=== PATIENT | male | born 1965 | race African-American/Black ===

== ENCOUNTER 2017-07-15 08:59 | Emergency (ER) | payer MEDICAID, MEDICARE ==
[2017-07-15 09:18] LABS: #Lymphocytes 1.1 thou/uL (1.20-3.40); #Monocytes 0.6 thou/uL (0.11-0.59); #Neutrophils 7.7 thou/uL (1.40-6.50); %Basophils 0.3 % (0.0-1.0); %Eosinophils 0.2 % (0.0-10.0); %Lymphocytes 11.1 % (21.0-51.0); %Monocytes 6.8 % (0.0-10.0); %Neutrophils 81.6 % (42.0-75.0); Hemoglobin 17.9 g/dL (14.0-18.0); Mean Corpuscular HGB CONC 33.6 g/dL (32.0-36.0); Mean Corpuscular Hemoglobin 30.8 pg (27.0-31.0); Mean Corpuscular Volume 91.8 fl (80.0-94.0); Mean Platelet Volume 9.2 fL (7.4-10.4); Platelet Count 198 thou/uL (130-400); Red Blood Cell (RBC) Count 5.82 mill/uL (4.70-6.10); White Blood Cell (WBC) Count 9.5 thou/uL (4.8-10.8)
[2017-07-15 09:36] LABS: Acetaminophen Less than 6.0 mcg/mL (10.0-30.0); Alcohol Less than 10 mg/dL (Less than 10); Salicylate Less than 8.0 mg/dL (15.0-30.0)
[2017-07-15 09:38] LABS: ALT (SGPT) 11 U/L (8-55); AST (SGOT) 16 U/L (5-34); Albumin 4.6 g/dL (3.5-5.0); Alkaline Phosphatase 133 U/L (40-150); Anion Gap 13 mmol/L (10-20); BUN (Urea Nitrogen) 27 mg/dL (8.9-20.6); Calc. Creatinine Clearance 0 mL/min (70-130); Carbon Dioxide 24 mmol/L (22-29); Chloride 107 mmol/L (98-107); Estimated GFR-MDRD 47; Globulin 3.7 g/dL (2.4-3.5); Glucose 139 mg/dL (70-105); Lipase 17 U/L (8-78); Magnesium 2.5 mg/dL (1.6-2.6); Protein, Total 8.3 g/dL (6.0-8.3); Sodium 140 mmol/L (136-145)
[2017-07-15] MEDS ORDERED: Pantoprazole 40 MG VIAL IVP SCH (10:30)
[2017-07-15] MEDS ORDERED: Pantoprazole 40 MG VIAL ONE (10:36)
== END 2017-07-15 12:14 | disposition left against medical advice (07) ==
LOC: ERS 08:59
DX: R11.2 Nausea with vomiting, unspecified (principal); I10 Essential (primary) hypertension; F20.9 Schizophrenia, unspecified; F17.210 Nicotine dependence, cigarettes, uncomplicated
CPT/HCPCS: 80053; 80307; 83690; 83735; 85025; 93005; 96361; 96374; C9113

== ENCOUNTER 2017-09-24 12:08 | Emergency (ER) | payer MEDICARE ==
[2017-09-24 13:04] LABS: Bilirubin Moderate (Negative); Blood, Urine Negative (Negative); Clarity CLEAR (Clear); Glucose, Urine (Dipstick) Negative (Negative); Leukocyte Small (Negative); Nitrite Negative (Negative); Protein, Urine (Dipstick) Negative (Neg-Trace); Specific Gravity, Urine 1.021 (1.002-1.036); pH, Urine 5.5 (5.0-9.0)
--- NOTE | 2017-09-24 13:07 | RAD ---
TWO VIEW CHEST SERIES: Comparison: 04-20-16 Indication: Hemoptysis. FINDINGS: There is patchy right perihilar opacity. Left lung is grossly clear. No effusion or pneumothorax iden tified. Cardiac silhouette is within normal limits of size. IMPRESSION: Patchy left perihilar opacity. This may relate to perihilar pneumonia/aspiration pneumonitis. Alterna tively, asymmetric edema is a consideration. Recommend continued imaging follow up to confirm resolut ion. POS: CHUCK
[2017-09-24 13:09] LABS: Bacteria/HPF None Seen HPF (None Seen); Pathc Cast-AUWi Flag 2.47 (0-2.49); RBC/HPF 0-3 HPF (0-3); Squamous Epithelial 0-3 HPF (0-3); WBC/HPF 0-3 HPF (0-3)
[2017-09-24 13:15] LABS: Hyaline Casts/LPF 0-3 HYALINE CAST LPF (0-3 Hyaline)
[2017-09-24 13:16] LABS: Amphetamine Not Detected (NotDetected); Barbiturates Screen Not Detected (NotDetected); Benzodiazepine Screen Not Detected (NotDetected); Cocaine Metabolite Screen Not Detected (NotDetected); Medtox Control Line Valid? VALID (VALID); Medtox Reader # READER 4; Methadone Not Detected (NotDetected); Methamphetamine Not Detected (NotDetected); Opiate Screen Not Detected (NotDetected); Oxycodone Screen Not Detected (NotDetected); Phencyclidine (PCP) Not Detected (NotDetected); THC/Cannabinoid Screen Not Detected (NotDetected); Tricyclic Screen Not Detected (NotDetected)
[2017-09-24 13:34] LABS: #Eosinphils 0.1 thou/uL (0.0-0.7); #Lymphocytes 1.3 thou/uL (1.20-3.40); #Monocytes 0.7 thou/uL (0.11-0.59); #Neutrophils 5.4 thou/uL (1.40-6.50); %Basophils 0.6 % (0.0-1.0); %Eosinophils 1.7 % (0.0-10.0); %Lymphocytes 16.8 % (21.0-51.0); %Neutrophils 71.9 % (42.0-75.0); Hemoglobin 17.6 g/dL (14.0-18.0); Mean Corpuscular HGB CONC 32.6 g/dL (32.0-36.0); Mean Corpuscular Hemoglobin 30.7 pg (27.0-31.0); Mean Corpuscular Volume 94.2 fL (78.0-98.0); Mean Platelet Volume 9.8 fL (7.4-10.4); Platelet Count 160 thou/uL (130-400); RBC Distribution Width 14.2 % (11.5-14.5); Red Blood Cell (RBC) Count 5.72 mill/uL (4.70-6.10); White Blood Cell (WBC) Count 7.5 thou/uL (4.8-10.8)
[2017-09-24 13:58] LABS: ALT (SGPT) 8 U/L (8-55); AST (SGOT) 11 U/L (5-34); Alkaline Phosphatase 97 U/L (40-150); Anion Gap 14 mmol/L (10-20); BUN (Urea Nitrogen) 25 mg/dL (8.9-20.6); Bilirubin, Total 0.8 mg/dL (0.2-1.2); Calc. Creatinine Clearance 0 mL/min (70-130); Calcium 10.1 mg/dL (7.8-10.44); Carbon Dioxide 27 mmol/L (22-29); Chloride 104 mmol/L (98-107); Estimated GFR-MDRD 59; Globulin 2.9 g/dL (2.4-3.5); Glucose 81 mg/dL (70-105); Potassium 3.9 mmol/L (3.5-5.1); Protein, Total 6.9 g/dL (6.0-8.3); Sodium 141 mmol/L (136-145)
== END 2017-09-24 14:00 | disposition left against medical advice (07) ==
LOC: ERS 12:08
DX: R11.10 Vomiting, unspecified (principal); I10 Essential (primary) hypertension; F20.9 Schizophrenia, unspecified; F17.210 Nicotine dependence, cigarettes, uncomplicated
CPT/HCPCS: 36415; 71046; 80053; 80306; 81003; 81015; 85025; 93005

== ENCOUNTER 2017-09-26 09:35 | Emergency (ER) | payer MEDICARE | END 2017-09-26 10:08 | disposition home or self-care (01) | LOC: ERS 09:35 | DX: Z00.00 Encounter for general adult medical examination without abnormal findings (principal); I10 Essential (primary) hypertension; F20.9 Schizophrenia, unspecified; F17.210 Nicotine dependence, cigarettes, uncomplicated ==

== ENCOUNTER 2017-11-24 07:13 | Emergency (ER) | payer MEDICARE ==
[2017-11-24] MEDS ORDERED: Ibuprofen 800 MG TAB ONE (07:35)
== END 2017-11-24 08:15 | disposition home or self-care (01) ==
LOC: ERS 07:13
DX: S63.501A Unspecified sprain of right wrist, initial encounter (principal); S63.502A Unspecified sprain of left wrist, initial encounter; Z71.6 Tobacco abuse counseling; I10 Essential (primary) hypertension; F20.9 Schizophrenia, unspecified; F17.210 Nicotine dependence, cigarettes, uncomplicated; X50.0XXA Overexertion from strenuous movement or load, initial encounter
CPT/HCPCS: 99406

== ENCOUNTER 2017-12-08 04:39 | Emergency (ER) | payer MEDICARE ==
[2017-12-08] MEDS ORDERED: Pantoprazole 40 MG VIAL ONE (05:03)
[2017-12-08 05:25] LABS: Prothrombin Time 13.5 SEC (12.0-14.7)
[2017-12-08 05:26] LABS: PTT 29.2 SEC (22.9-36.1)
[2017-12-08 05:31] LABS: #Basophils 0.1 thou/uL (0.0-0.2); #Eosinphils 0.1 thou/uL (0.0-0.7); #Lymphocytes 1.5 thou/uL (1.20-3.40); #Monocytes 0.6 thou/uL (0.11-0.59); #Neutrophils 6.9 thou/uL (1.40-6.50); %Basophils 0.6 % (0.0-1.0); %Eosinophils 0.8 % (0.0-10.0); %Lymphocytes 16.7 % (21.0-51.0); %Monocytes 6.9 % (0.0-10.0); Hemoglobin 17.2 g/dL (14.0-18.0); Mean Corpuscular HGB CONC 31.9 g/dL (32.0-36.0); Mean Corpuscular Hemoglobin 29.3 pg (27.0-31.0); Mean Corpuscular Volume 91.7 fL (78.0-98.0); Platelet Count 191 thou/uL (130-400); RBC Distribution Width 14.9 % (11.5-14.5); Red Blood Cell (RBC) Count 5.87 mill/uL (4.70-6.10); White Blood Cell (WBC) Count 9.2 thou/uL (4.8-10.8)
[2017-12-08 05:37] LABS: ALT (SGPT) 11 U/L (8-55); AST (SGOT) 15 U/L (5-34); Alkaline Phosphatase 131 U/L (40-150); Anion Gap 13 mmol/L (10-20); BUN (Urea Nitrogen) 11 mg/dL (8.4-25.7); Bilirubin, Total 0.9 mg/dL (0.2-1.2); Calc. Creatinine Clearance 0 mL/min (70-130); Calcium 9.8 mg/dL (7.8-10.44); Carbon Dioxide 25 mmol/L (22-29); Chloride 106 mmol/L (98-107); Estimated GFR-MDRD 67; Globulin 3.1 g/dL (2.4-3.5); Glucose 94 mg/dL (70-105); Potassium 3.6 mmol/L (3.5-5.1); Protein, Total 7.1 g/dL (6.0-8.3); Sodium 140 mmol/L (136-145)
== END 2017-12-08 06:05 | disposition home or self-care (01) ==
LOC: ERS 04:39
DX: K29.70 Gastritis, unspecified, without bleeding (principal); Z71.6 Tobacco abuse counseling; I10 Essential (primary) hypertension; F20.9 Schizophrenia, unspecified; F17.210 Nicotine dependence, cigarettes, uncomplicated
CPT/HCPCS: 36415; 80053; 82274; 85025; 85610; 85730; 86850; 86900; 86901; 96374; 99406; C9113

== ENCOUNTER 2017-12-22 07:46 | Inpatient (IN) | payer MEDICARE ==
[2017-12-22] MEDS ORDERED: Ondansetron PF 4 MG/2 ML Vial ONE (08:29)
[2017-12-22] MEDS ORDERED: Famotidine/PF 20 mg/2ml Vial ONE (08:29)
[2017-12-22] MEDS ORDERED: Pantoprazole 40 MG VIAL ONE (08:29)
[2017-12-22 08:49] LABS: #Eosinphils 0.1 thou/uL (0.0-0.7); #Lymphocytes 1.1 thou/uL (1.20-3.40); #Monocytes 0.9 thou/uL (0.11-0.59); #Neutrophils 8.9 thou/uL (1.40-6.50); %Basophils 0.2 % (0.0-1.0); %Eosinophils 1.2 % (0.0-10.0); %Lymphocytes 9.9 % (21.0-51.0); %Monocytes 7.8 % (0.0-10.0); Mean Corpuscular HGB CONC 32.1 g/dL (32.0-36.0); Mean Corpuscular Hemoglobin 29.2 pg (27.0-31.0); Mean Corpuscular Volume 91.1 fL (78.0-98.0); Mean Platelet Volume 9.9 fL (7.4-10.4); Platelet Count 177 thou/uL (130-400); RBC Distribution Width 14.8 % (11.5-14.5); Red Blood Cell (RBC) Count 6.83 mill/uL (4.70-6.10)
[2017-12-22 08:58] LABS: ALT (SGPT) 11 U/L (8-55); AST (SGOT) 15 U/L (5-34); Albumin 4.4 g/dL (3.5-5.0); Alkaline Phosphatase 101 U/L (40-150); Anion Gap 20 mmol/L (10-20); BUN (Urea Nitrogen) 57 mg/dL (8.4-25.7); Calc. Creatinine Clearance 0 mL/min (70-130); Calcium 10.2 mg/dL (7.8-10.44); Carbon Dioxide 27 mmol/L (22-29); Chloride 95 mmol/L (98-107); Estimated GFR-MDRD 43; Globulin 3.4 g/dL (2.4-3.5); Glucose 92 mg/dL (70-105); Lipase 31 U/L (8-78); Potassium 3.6 mmol/L (3.5-5.1); Protein, Total 7.8 g/dL (6.0-8.3); Sodium 138 mmol/L (136-145)
[2017-12-22 09:03] LABS: Bilirubin Negative (Negative); Blood, Urine Negative (Negative); Clarity CLEAR (Clear); Glucose, Urine (Dipstick) Negative (Negative); Leukocyte Negative (Negative); Nitrite Negative (Negative); Protein, Urine (Dipstick) Negative (Neg-Trace); Specific Gravity, Urine 1.015 (1.002-1.036); pH, Urine 5.5 (5.0-9.0)
[2017-12-22 09:20] LABS: CKMB 0.6 ng/mL (0-6.6); Troponin I Less than 0.010 ng/mL (< 0.028)
--- NOTE | 2017-12-22 09:33 | CT ---
CT ABDOMEN AND PELVIS WITH CONTRAST: Date: 12/22/17 HISTORY: Abdominal pain. COMPARISON: None. FINDINGS: Lung bases are clear. No pericardial effusion. Liver is unremarkable. Spleen is unremarkable. No dilated loops of large or small bowel. There is mil d distention of the gallbladder without pericholecystic inflammatory stranding. There is some hyperenhancement of the distal ileum, including the terminal ileum. The appendix is not well visualized, although there is no pericecal fluid to suggest acute appendicitis. Mild thickening of the urinary bladder. Moderate atherosclerotic plaque aortoiliac system without aneurysmal dilatation. No retroperitoneal a denopathy. Hypodensity intrapolar left kidney suggesting a cyst. No hydronephrosis. The skeleton is unremarkable besides a Type IIIb lumbosacral transitional vertebra. There is a high g rade stenosis of left common femoral artery due to peripheral plaque measuring 2.7 cm in length. Ther e is also 50% stenosis right common femoral artery with a length of 2.5 cm due to plaque. IMPRESSION: 1. Abnormal hyperenhancement of the mucosa of the mucosa of the terminal ileum and the distal ileum, may be sequelae of ileitis. 2. The terminal appendix measures approximately 7.0 mm without significant periappendiceal inflammat ion. 3. Mildly complex cystic structure inferior pole right kidney. Follow-up ultrasound in 6 months aniyah mmended. 4. Approximately 50% narrowing of both left and right common femoral arteries due to calcific plaque and soft plaque. POS: CHUCK
[2017-12-22] MEDS ORDERED: Meropenem 1 GM in Sodium Chloride 0.9% 100 ML IVPB SCH (10:00)
[2017-12-22] MEDS ORDERED: ISOVUE-370 76%-LOCM 1 ML ONE (10:09)
[2017-12-22] MEDS ORDERED: MEROPENEM 1 GM/50 ML 1 GM in Premix Bag 1 BAG IVPB SCH (10:15)
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
[2017-12-22] MEDS ORDERED: Acetaminophen 325 MG TAB PO PRN ×2 (14:50→14:55)
[2017-12-22] MEDS ORDERED: Ondansetron PF 4 MG/2 ML Vial IVP PRN ×2 (14:50→14:55)
[2017-12-22] MEDS ORDERED: Ondansetron ODT 4 MG TAB SL PRN (14:50)
[2017-12-22] MEDS ORDERED: Sodium Chloride 0.9% 1,000 ML IV SCH (14:50)
[2017-12-22] MEDS ORDERED: Morphine 4 MG/ML VIAL SLOW IVP PRN (14:52)
[2017-12-22] MEDS ORDERED: Loratadine 10 MG TAB PO PRN (14:55)
[2017-12-22] MEDS ORDERED: Zolpidem Tartrate 5 MG TAB PO PRN (14:55)
[2017-12-22] MEDS ORDERED: Eucerin (Mineral Oil/Petrolatum,White) 30 gm Jar TOP PRN (14:55)
[2017-12-22] MEDS ORDERED: Ondansetron ODT 4 MG TAB PO PRN (14:55)
[2017-12-22] MEDS ORDERED: Bisacodyl 10 MG SUPP PR PRN (14:55)
[2017-12-22] MEDS ORDERED: cloNIDine 0.1 MG TAB PO PRN (14:55)
[2017-12-22] MEDS ORDERED: Loperamide HCl 2 MG CAP PO PRN (14:55)
[2017-12-22] MEDS ORDERED: hydrALAZINE 20 MG/ML VIAL SLOW IVP PRN (14:55)
[2017-12-22] MEDS ORDERED: Sodium Chloride 0.65% Nasal 44 ML BOT EA NARE PRN (14:55)
[2017-12-22] MEDS ORDERED: HYDROcodone/Acetaminophen 5/325 mg Tablet PO PRN (14:55)
[2017-12-22] MEDS ORDERED: Calcium Carbonate 500 MG ChewTAB PO PRN (14:55)
[2017-12-22] MEDS ORDERED: Bisacodyl 5 MG TAB PO PRN (14:55)
[2017-12-22] MEDS ORDERED: Diabetic Tussin 200 MG/10 ML UDCUP PO PRN (14:55)
[2017-12-22] MEDS ORDERED: Artificial Tears 18 DROP/0.9 ML EA EYE PRN (14:55)
[2017-12-22] MEDS ORDERED: Amlodipine 10 MG TAB PO SCH (14:55)
[2017-12-22] MEDS: Sodium Chloride 0.9% 1,000 ML IV SCH (15:49)
[2017-12-22] MEDS: Meropenem 500 MG in Sodium Chloride 0.9% 100 ML IVPB SCH ×2 (16:55→23:49)
[2017-12-23] MEDS: Sodium Chloride 0.9% 1,000 ML IV SCH ×3 (00:11→23:59)
[2017-12-23 01:04] LABS: Creatinine, Urine 79.07 mg/dL (63-166); Protein, Urine Random Quant Less than 10 mg/dL (1-14)
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
[2017-12-23] MEDS: Meropenem 500 MG in Sodium Chloride 0.9% 100 ML IVPB SCH ×3 (08:30→23:57)
[2017-12-23] MEDS: Amlodipine 10 MG TAB PO SCH (08:30)
--- NOTE | 2017-12-23 11:15 | PDOC.PN ---
- Subjective Encounter Start Date: 12/23/17 Encounter Start Time: 10:00 -: old records requested/rev Patient seen and examined. No new complaints. No overnight events - Objective Resuscitation Status: Resuscitation Status FULL:Full Resuscitation MAR Reviewed: Yes Vital Signs & Weight: Vital Signs (12 hours) Temp Pulse Resp BP BP Pulse Ox 12/23/17 08:30 60 157/62 H 12/23/17 08:00 100 12/23/17 07:27 98.9 F 60 20 157/92 H 100 12/23/17 04:00 98.1 F 60 16 142/87 H 97 12/23/17 00:00 98.1 F 64 16 165/89 H 98 Weight Weight 145 lb 12.8 oz I&O: 12/22/17 12/23/17 12/24/17 06:59 06:59 06:59 Intake Total 3300 Output Total 200 Balance 3100 Result Diagrams: 12/22/17 08:20 12/22/17 08:20 Phys Exam - Physical Examination Constitutional: NAD HEENT: PERRLA, moist MMs, sclera anicteric Neck: no JVD, supple Respiratory: no wheezing, no rales, no rhonchi Cardiovascular: RRR, no significant murmur, no rub Gastrointestinal: soft, non-tender, no distention, positive bowel sounds Musculoskeletal: no edema, pulses present Neurological: non-focal, normal sensation, moves all 4 limbs Psychiatric: normal affect, A&O x 3 Skin: no rash, normal turgor Dx/Plan (1) Acute kidney failure Status: Acute (2) Dehydration Code(s): E86.0 - DEHYDRATION Status: Acute (3) Ileitis, terminal Code(s): K50.00 - CROHN'S DISEASE OF SMALL INTESTINE WITHOUT COMPLICATIONS Status: Acute (4) Nausea & vomiting Code(s): R11.2 - NAUSEA WITH VOMITING, UNSPECIFIED Status: Acute (5) Polycythemia, secondary Code(s): D75.1 - SECONDARY POLYCYTHEMIA Status: Acute (6) Hypertension Code(s): I10 - ESSENTIAL (PRIMARY) HYPERTENSION Status: Chronic (7) Schizophrenia Code(s): F20.9 - SCHIZOPHRENIA, UNSPECIFIED Status: Chronic (8) Tobacco abuse Code(s): Z72.0 - TOBACCO USE Status: Chronic - Plan cont current plan of care, continue antibiotics * renal US * await stool for infection work up * medication reviewed as below * symptomatic treatment * today's lab pending * advance diet * check hepatitis profile * expecting discharge soon * counselled to avoid smoking and alcohol abuse. Review of Systems - Review of Systems Eyes: negative: Pain, Vision Change, Conjunctivae Inflammation, Eyelid Inflammation, Redness, Other ENT: negative: Ear Pain, Ear Discharge, Nose Pain, Nose Discharge, Nose Congestion, Mouth Pain, Mouth Swelling, Throat Pain, Throat Swelling, Other Respiratory: negative: Cough, Dry, Shortness of Breath, Hemoptysis, SOB with Excertion, Pleuritic Pain, Sputum, Wheezing Cardiovascular: negative: chest pain, palpitations, orthopnea, paroxysmal nocturnal dyspnea, edema, light headedness, other Gastrointestinal: negative: Nausea, Vomiting, Abdominal Pain, Diarrhea, Constipation, Melena, Hematochezia, Other Genitourinary: negative: Dysuria, Frequency, Incontinence, Hematuria, Retention , Other Musculoskeletal: negative: Neck Pain, Shoulder Pain, Arm Pain, Back Pain, Hand Pain, Leg Pain, Foot Pain, Other Skin: negative: Rash, Lesions, Tarun, Bruising, Other - Medications/Allergies Allergies/Adverse Reactions: Allergies Allergy/AdvReac Type Severity Reaction Status Date / Time No Known Drug Allergies Allergy Unverified 10/11/16 11:33 Medications: Current Medications Acetaminophen (Tylenol) 650 mg PO Q4H PRN PRN Reason: Headache/Fever/Mild Pain (1-3) Hydrocodone Bitart/Acetaminophen (Logan 5/325) 1 tab PO Q4H PRN PRN Reason: Moderate Pain (4-6) Amlodipine Besylate (Norvasc) 10 mg PO DAILY [facility] Last Admin: 12/23/17 08:30 Dose: 10 mg Artificial Tears (Tears Naturale) 2 drop EA EYE PRN PRN PRN Reason: Dry Eyes Bisacodyl (Dulcolax) 10 mg PO DAILYPRN PRN PRN Reason: Constipation Bisacodyl (Dulcolax) 10 mg MD DAILYPRN PRN PRN Reason: Constipation Calcium Carbonate (Tums) 1,000 mg PO Q4H PRN PRN Reason: Heartburn or Indigestion Clonidine (Catapres) 0.1 mg PO Q4H PRN PRN Reason: SBP > ____ Last Admin: 12/22/17 15:49 Dose: 0.1 mg Cyanocobalamin (Vitamin B-12) 1,000 mcg PO DAILY [facility] Folic Acid (Folvite) 1 mg PO DAILY [facility] Guaifenesin (Robitussin Sf) 200 mg PO Q4H PRN PRN Reason: Cough Hydralazine HCl (Apresoline) 10 mg SLOW IVP Q4H PRN PRN Reason: SBP > 180 and HR < 70 Meropenem 500 mg/ Sodium (Chloride) 100 mls @ 200 mls/hr IVPB [id number],1600,[id number] [facility] Last Admin: 12/23/17 08:30 Dose: 100 mls Sodium Chloride (Normal Saline 0.9%) 1,000 mls @ 100 mls/hr IV .Q10H [facility] Last Admin: 12/23/17 00:11 Dose: 1,000 mls Loperamide HCl (Imodium) 2 mg PO PRN PRN PRN Reason: Diarrhea/Loose Stools Loratadine (Claritin) 10 mg PO DAILYPRN PRN PRN Reason: Sinus Symptoms Mineral Oil/White Petrolatum (Eucerin Cream) 0 gm TOP BIDPRN PRN PRN Reason: Dry Skin Nicotine (Nicoderm Patch) 21 mg TD DAILY [facility] Ondansetron HCl (Zofran Odt) 4 mg PO Q6H PRN PRN Reason: Nausea/Vomiting Ondansetron HCl (Zofran) 4 mg IVP Q6H PRN PRN Reason: Nausea/Vomiting Sodium Chloride ([place] Nasal [place] 0.65%) 0 ml EA NARE QIDPRN PRN PRN Reason: Nasal Congestion Thiamine HCl (Thiamine) 100 mg PO DAILY [facility] Zolpidem Tartrate (Ambien) 5 mg PO HSPRN PRN PRN Reason: Insomnia
[2017-12-23 15:21] VITALS: BMI 23.5
--- NOTE | 2017-12-23 16:02 | ULT ---
RENAL ULTRASOUND: 12/23/17 PROVIDED CLINICAL HISTORY: Renal cyst. FINDINGS: Comparison is made with the CT examination dated 12/22/17. The right kidney measures about 9.5 x 4.6 x 5.3 cm. There is no sonographic correlate evident for the cyst described on the CT examination performed yesterday. The left kidney measures about 9 x 5.4 x 4.7 cm and demonstrates no evidence for hydronephrosis. Ther e is a 1.7 cm simple appearing cyst present. The urinary bladder appears sonographically unremarkable. IMPRESSION: No sonographic abnormality is evident within the right kidney to correspond to the CT finding. When c omparing with a renal ultrasound of 09/22/10, a complex cystic structure was present in this portion o f the right kidney on that examination. Nonvisualization of this structure on the current examination may be on the basis of artifact or shadowing. This likely reflects a stable benign finding. Consider six month followup renal ultrasound. POS: CHUCK
[2017-12-23 16:24] LABS: #Basophils 0.1 thou/uL (0.0-0.2); #Eosinphils 0.1 thou/uL (0.0-0.7); #Lymphocytes 1.4 thou/uL (1.20-3.40); #Neutrophils 7.1 thou/uL (1.40-6.50); %Basophils 0.6 % (0.0-1.0); %Eosinophils 1.3 % (0.0-10.0); %Lymphocytes 14.9 % (21.0-51.0); %Monocytes 10.1 % (0.0-10.0); %Neutrophils 73.2 % (42.0-75.0); Hemoglobin 17.6 g/dL (14.0-18.0); Mean Corpuscular HGB CONC 31.7 g/dL (32.0-36.0); Mean Corpuscular Hemoglobin 29.5 pg (27.0-31.0); Mean Corpuscular Volume 93.1 fL (78.0-98.0); Mean Platelet Volume 10.8 fL (7.4-10.4); Platelet Count 122 thou/uL (130-400); RBC Distribution Width 14.5 % (11.5-14.5); Red Blood Cell (RBC) Count 5.98 mill/uL (4.70-6.10); White Blood Cell (WBC) Count 9.7 thou/uL (4.8-10.8)
[2017-12-23 16:59] LABS: HBSAg Index 0.25 S/CO (0-0.99); Hep B Surf Ag Non-Reactive S/CO (NonReactive)
[2017-12-23 17:00] LABS: Hep C IgG Ab Non-Reactive (NonReactive); Hep C Index 0.05 S/CO (0-0.79)
[2017-12-23 17:47] LABS: Hep A IgM AB Non-Reactive (NonReactive); Hep A IgM S/CO 0.11 S/CO (0-0.79)
[2017-12-23 17:49] LABS: HBCM Index 0.06 S/CO (0-0.79); Hepatitis B Core IGM Abs Non-Reactive (NonReactive)
[2017-12-23 18:26] LABS: Albumin 3.3 g/dL (3.5-5.0)
[2017-12-23 18:27] LABS: Chloride 105 mmol/L (98-107); Potassium 3.5 mmol/L (3.5-5.1); Sodium 135 mmol/L (136-145)
[2017-12-23 18:28] LABS: Globulin 2.4 g/dL (2.4-3.5); Glucose 135 mg/dL (70-105)
[2017-12-23 18:29] LABS: Anion Gap 10 mmol/L (10-20); Carbon Dioxide 24 mmol/L (22-29)
[2017-12-23 18:30] LABS: Bilirubin, Total 0.8 mg/dL (0.2-1.2)
[2017-12-23 18:31] LABS: Alkaline Phosphatase 78 U/L (40-150); Calc. Creatinine Clearance 64 mL/min (70-130); Estimated GFR-MDRD 72
[2017-12-23 18:32] LABS: BUN (Urea Nitrogen) 23 mg/dL (8.4-25.7)
[2017-12-23 18:33] LABS: AST (SGOT) 12 U/L (5-34)
[2017-12-23 18:34] LABS: ALT (SGPT) 7 U/L (8-55)
[2017-12-23 18:36] LABS: Calcium 8.6 mg/dL (7.8-10.44); Protein, Total 5.7 g/dL (6.0-8.3)
--- NOTE | 2017-12-23 21:44 | PRG ---
DATE OF SERVICE: 12/23/2017 REASON FOR CONSULTATION: Abdominal pain, nausea, vomiting, and abnormal GI imaging. SUBJECTIVE: The patient did well overnight with no acute events or problems. He has had no episodes of nausea, vomiting, or abdominal pain since being admitted to the hospital. At the time of this in [facility], he was voraciously eating his evening tray with no problems throughout the entire course of the day. Per nursing staff, he has had no problems and no return of his admitting symptoms. OBJECTIVE: VITAL SIGNS: Temperature 99, pulse 85, blood pressure 156/98, respiratory rate 18, satting 93% on ro om air. GENERAL: The patient was lying in bed in no acute distress. Alert and oriented x4. HEART: Regular rate and rhythm. LUNGS: Clear to auscultation bilaterally. ABDOMEN: Normoactive bowel sounds, soft, nontender, nondistended. EXTREMITIES: No cyanosis, clubbing or edema. LABORATORY DATA: CBC with a white blood cell count of 9.7, hemoglobin 17.6, hematocrit 55.7, platele ts 122. IMAGING DATA: No current GI imaging is available for review. ASSESSMENT AND PLAN: The patient is a 52-year-old male with past medical history of peptic ulcer dis ease, hypertension, schizophrenia, alcohol and tobacco abuse presenting with complaints of nausea, vo miting, abdominal pain, and abnormal GI imaging. Nausea, vomiting/abdominal pain. The patient states that he has been having intermittent episodes of nausea, vomiting, and abdominal pain that have been present for the last 2-3 decades. All of these episodes of nausea, vomiting, and abdominal pain have been associated with increased alcohol intake a nd when coupled with increased smoking of tobacco. Since discontinuation of both of these habits dur ing this hospitalization, he has had complete resolution of his nausea, vomiting, and abdominal pain. At this time, he may have an element of chronic pancreatitis that is further exacerbated by [facility] ed alcohol and tobacco intake, but the pattern of pain does not necessarily fit this nor does his lab oratory data echo this particular diagnosis rather a diagnosis of extensive alcohol use with alcohol being a chemical irritant to the GI tract is much more likely contributing to nausea, vomiting, and a bdominal pain. RECOMMENDATIONS: 1. Strongly urge alcohol and tobacco cessation as these are probably the root of his symptoms. 2. Advance diet as tolerated. Abnormal GI imaging. The patient is presenting with acute on chronic onset of nausea, vomiting, abdo arlen pain along with a CT scan showing some hyperenhancement of the terminal ileum. At this point, the hyperenhancement of the terminal ileum is minor and could be due to an artifactual process as opp osed to a pathological state. Given his complete resolution of symptoms upon cessation of alcohol an d tobacco abuse in addition to rehydration with IV fluids, the likelihood of terminal ileitis and/or inflammatory bowel disease is highly unlikely. Stool studies were ordered to evaluate the possibilit y of an infectious etiology for this terminal ileitis, but he has not had a bowel movement since he h as been here in the hospital making this much less likely. RECOMMENDATIONS: 1. Again, it was strongly advised cessation of tobacco and alcohol abuse. 2. Would have the patient follow up with PCP as an outpatient with repeat imaging in approximately 2 months. If he continues to have evidence of inflammation while off of alcohol and tobacco, would th en consider repeat evaluation with possible colonoscopy at that time. We will sign off at this time. Please call with any questions.
[2017-12-24] MEDS: Sodium Chloride 0.9% 1,000 ML IV SCH (06:27)
[2017-12-24 08:03] VITALS: TEMP 98.8
--- NOTE | 2017-12-24 08:11 | DIS ---
DATE OF ADMISSION: 12/22/2017 DATE OF DISCHARGE: 12/24/2017 PRIMARY CARE PHYSICIAN: Michael peters. DISCHARGE DISPOSITION: Home. PRIMARY DISCHARGE DIAGNOSES: 1. Acute kidney failure, improved. 2. Dehydration, corrected. 3. Nonspecific ileitis. 4. Nausea and vomiting, resolved. 5. Secondary polycythemia due to dehydration. SECONDARY DISCHARGE DIAGNOSES: Hypertension, medical noncompliance, tobacco abuse, alcohol abuse, schizophrenia. PRIMARY PROCEDURE/OPERATION: None. RADIOLOGICAL INVESTIGATION: 1. Abdomen and pelvis CT scan showed nonspecific terminal ileitis renal cyst. 2. Renal ultrasound did not show any complicated renal cyst. SIGNIFICANT LABORATORY DATA: WBC 9.7, hemoglobin 17.6, platelet 122. Sodium 135, potassium 3.5, BUN 23, creatinine 1.27, calcium 8.6. AST 12, ALT 7, alkaline phosphatase 78, albumin 3.3. Cardiac enzymes negative. Urinalysis normal. Hepatitis profile negative. DISCHARGE MEDICATIONS: Amlodipine 10 mg p.o. daily, folic acid 1 mg p.o. daily , vitamin B12 of 1000 mcg p.o. daily, thiamine 100 mg p.o. daily. CONTRAINDICATIONS: None. CODE STATUS: FULL CODE. INPATIENT CONSULTANTS: Dr. Robles was consulted for abnormal CT finding of terminal ileitis, but he recommended that this patient has nonspecific finding and he will need the repeat imaging with follow up with primary care physician. DISCHARGE PLAN: Post hospital, the patient will follow up with primary care physician in 1 week. HOSPITAL COURSE: A 52-year-old male with history of hypertension and he was not taking any medication. He has underlying tobacco and alcohol abuse history , who came to emergency room with nausea, vomiting, abdominal pain. He required two emergency room visit. He was significantly dehydrated with hemoconcentration on admission and acute kidney failure. He was also hypertensive. He was admitted to medical floor. We treated him with IV fluid. This time, CT of the abdomen and pelvis showed nonspecific terminal ileitis and that is why GI was consulted and they attributed to be due to artifact versus nonspecific and recommended repeat CT scan as an outpatient basis. Patient also had CT finding of the renal cyst and that is why we did a renal ultrasound, which was unremarkable. With hydration, patient's renal function improved. Patient was tolerating p.o. well, ambulatory. For his hypertension, we started amlodipine. We provided tobacco smoking cessation counseling as well as alcohol cessation counseling while in hospital. Overall, this patient is medically stable for discharge. His vitals are stable. Patient is strongly advised to follow up with the primary care physician in one week. At that time, he will need repeat imaging with a CT abdomen and if patient does have persistent finding then he will need outpatient colonoscopy. Patient is overall medically stable for discharge today. patient seen and examined bedside today, His examination is normal, Vitals stable MTDD
[2017-12-24] MEDS: Amlodipine 10 MG TAB PO SCH (08:41)
[2017-12-24 08:42] VITALS: BP 161/90
[2017-12-24] MEDS ORDERED: Nicotine 21 MG PATCH TD SCH (09:00)
[2017-12-24] MEDS ORDERED: Cyanocobalamin (Vitamin B-12) 1,000 MCG TAB PO SCH (09:00)
[2017-12-24] MEDS ORDERED: Folic Acid 1 MG TAB PO SCH (09:00)
--- NOTE | 2017-12-24 14:10 | EKG ---
Test Reason : Blood Pressure : / mmHG Vent. Rate : 089 BPM Atrial Rate : 089 BPM P-R Int : 116 ms QRS Dur : 074 ms QT Int : 358 ms P-R-T Axes : 077 -27 -70 degrees QTc Int : 435 ms Normal sinus rhythm Biatrial enlargement Left ventricular hypertrophy Abnormal ECG Sinilar to 09/24/2017 Confirmed by JOCELINE BRUNO DO ([id number]), editorial writer AMPARO MENDEZ ([id number]) on 12/24/2017 2:10:12 PM Referred By: Confirmed By:JOCELINE BRUNO DO
== END 2017-12-24 10:22 | disposition home or self-care (01) | DRG 392 ==
LOC: ERS 07:46 → T4-B 14:46
PROVIDERS: ADMIT Internal Medicine; ATTEND Internal Medicine
DX: K52.9 Noninfective gastroenteritis and colitis, unspecified (principal); N17.9 Acute kidney failure, unspecified; E86.0 Dehydration; D75.1 Secondary polycythemia; I10 Essential (primary) hypertension; F17.210 Nicotine dependence, cigarettes, uncomplicated; F20.9 Schizophrenia, unspecified; F10.10 Alcohol abuse, uncomplicated; Y90.9 Presence of alcohol in blood, level not specified; Z91.14 Patient's other noncompliance with medication regimen; Z87.11 Personal history of peptic ulcer disease; K74.60 Unspecified cirrhosis of liver; I73.9 Peripheral vascular disease, unspecified
CPT/HCPCS: 36415; 36416; 74177; 76770; 80053; 80074; 81003; 82553; 82570; 83690; 84156; 84484; 85025; 93005; 96361; 96365; 96375; C9113; J2185; J2405; J7050; S0028

== ENCOUNTER 2018-05-12 08:41 | Emergency (ER) | payer MEDICARE, MEDICAID | END 2018-05-12 10:05 | disposition home or self-care (01) | LOC: ERS 08:41 | DX: L84 Corns and callosities (principal); F20.9 Schizophrenia, unspecified; I10 Essential (primary) hypertension | CPT/HCPCS: 99283 ==

== ENCOUNTER 2018-06-03 16:02 | Emergency (ER) | payer MEDICARE, MEDICAID ==
[2018-06-03] MEDS ORDERED: Pantoprazole 40 MG VIAL ONE (17:26)
[2018-06-03 17:38] LABS: #Lymphocytes 0.9 thou/uL (1.20-3.40); #Monocytes 0.5 thou/uL (0.11-0.59); #Neutrophils 6.7 thou/uL (1.40-6.50); %Basophils 0.5 % (0.0-1.0); %Eosinophils 0.3 % (0.0-10.0); %Lymphocytes 11.3 % (21.0-51.0); %Monocytes 6.4 % (0.0-10.0); %Neutrophils 81.5 % (42.0-75.0); Hemoglobin 17.6 g/dL (14.0-18.0); Mean Corpuscular HGB CONC 33.2 g/dL (32.0-36.0); Mean Corpuscular Volume 93.2 fL (78.0-98.0); Mean Platelet Volume 9.6 fL (7.4-10.4); Platelet Count 162 thou/uL (130-400); RBC Distribution Width 14.1 % (11.5-14.5); Red Blood Cell (RBC) Count 5.69 mill/uL (4.70-6.10); White Blood Cell (WBC) Count 8.2 thou/uL (4.8-10.8)
[2018-06-03 18:00] LABS: ALT (SGPT) 11 U/L (8-55); AST (SGOT) 16 U/L (5-34); Albumin 4.3 g/dL (3.5-5.0); Alkaline Phosphatase 121 U/L (40-150); Anion Gap 18 mmol/L (10-20); BUN (Urea Nitrogen) 17 mg/dL (8.4-25.7); Bilirubin, Total 0.8 mg/dL (0.2-1.2); Calc. Creatinine Clearance 0 mL/min (70-130); Calcium 10.2 mg/dL (7.8-10.44); Carbon Dioxide 22 mmol/L (22-29); Chloride 105 mmol/L (98-107); Estimated GFR-MDRD 64; Globulin 3.4 g/dL (2.4-3.5); Glucose 106 mg/dL (70-105); Lipase 36 U/L (8-78); Potassium 4.5 mmol/L (3.5-5.1); Protein, Total 7.7 g/dL (6.0-8.3); Sodium 140 mmol/L (136-145)
== END 2018-06-03 20:10 | disposition home or self-care (01) ==
LOC: ERS 16:02
DX: K27.9 Peptic ulcer, site unspecified, unspecified as acute or chronic, without hemorrhage or perforation (principal); I10 Essential (primary) hypertension; F20.9 Schizophrenia, unspecified; F31.9 Bipolar disorder, unspecified; F17.210 Nicotine dependence, cigarettes, uncomplicated
CPT/HCPCS: 80053; 82271; 83690; 85025; 96361; 96374; C9113

== ENCOUNTER 2018-11-30 11:11 | Emergency (ER) | payer MEDICARE, MEDICAID | END 2018-11-30 13:55 | disposition home or self-care (01) | LOC: ERS 11:11 | DX: M79.672 Pain in left foot (principal); M79.671 Pain in right foot; I10 Essential (primary) hypertension; F31.9 Bipolar disorder, unspecified; F20.9 Schizophrenia, unspecified; F17.210 Nicotine dependence, cigarettes, uncomplicated | CPT/HCPCS: 99283 ==

== ENCOUNTER 2020-05-12 10:33 | Inpatient (IN) | payer MEDICAID, MEDICARE, OTHER ==
[2020-05-12] MEDS ORDERED: Midazolam HCl 5 mg/ml Vial ONE (10:37)
[2020-05-12] MEDS ORDERED: Rocuronium Bromide 10 MG/ML (10ML VIAL) ONE (10:37)
[2020-05-12] MEDS ORDERED: Propofol 1,000 MG/100 ML VIAL IV ONE (10:46)
[2020-05-12] MEDS ORDERED: Cefepime 2 GM VIAL ONE (10:50)
[2020-05-12] MEDS ORDERED: Atropine Sulfate 1 mg/10 ml Syringe ONE (10:52)
[2020-05-12] MEDS ORDERED: Norepinephrine 8 MG/0.9% NS 250 ML ONE (10:56)
[2020-05-12 11:00] LABS: Bilirubin Negative (Negative); Blood, Urine Negative (Negative); Clarity Clear (Clear); Glucose, Urine (Dipstick) Normal (Negative); Ketone, Urine Negative (Negative); Leukocyte Negative Leu/uL (Negative); Nitrite Negative (Negative); Protein, Urine (Dipstick) Negative (Neg-Trace); Specific Gravity, Urine 1.014 (1.002-1.036); Urobilinogen Normal mg/dL (Less than 2)
[2020-05-12] MEDS ORDERED: Norepinephrine 4 MG/4 ML VIAL ONE (11:03)
[2020-05-12 11:14] LABS: Amphetamine Not Detected (NotDetected); Barbiturates Screen Not Detected (NotDetected); Benzodiazepine Screen Not Detected (NotDetected); Cocaine Metabolite Screen Not Detected (NotDetected); Medtox Reader # READER 1; Methadone Not Detected (NotDetected); Methamphetamine Not Detected (NotDetected); Opiate Screen Not Detected (NotDetected); Oxycodone Screen Not Detected (NotDetected); Phencyclidine (PCP) Not Detected (NotDetected); THC/Cannabinoid Screen Not Detected (NotDetected); Tricyclic Screen Not Detected (NotDetected)
[2020-05-12 11:15] LABS: Medtox Control Line Valid? VALID (VALID)
[2020-05-12] MEDS ORDERED: Norepinephrine 8 MG/0.9% NS 250 ML IVPB SCH (11:15)
[2020-05-12 11:17] LABS: INR-International Normal Ratio 1.1; Prothrombin Time 14.4 sec (12.0-14.7)
[2020-05-12 11:18] LABS: PTT 40.2 sec (22.9-36.1)
[2020-05-12 11:21] LABS: Acetaminophen Less than 6.0 mcg/mL (10.0-30.0); Alcohol Less than 10 mg/dL (Less than 10); Magnesium 2.2 mg/dL (1.6-2.6); Salicylate Less than 8.0 mg/dL (15.0-30.0)
[2020-05-12 11:23] LABS: #Lymphocytes 0.5 thou/uL (1.20-3.40); #Monocytes 0.2 thou/uL (0.11-0.59); %Basophils 0.3 % (0.0-1.0); %Eosinophils 0.3 % (0.0-10.0); %Lymphocytes 12.9 % (21.0-51.0); %Monocytes 4.5 % (0.0-10.0); %Neutrophils 81.9 % (42.0-75.0); ALT (SGPT) 154 U/L (8-55); AST (SGOT) 101 U/L (5-34); Albumin 3.2 g/dL (3.5-5.0); Alkaline Phosphatase 106 U/L (40-110); Anion Gap 14 mmol/L (10-20); BUN (Urea Nitrogen) 47 mg/dL (8.4-25.7); Bilirubin, Total 0.2 mg/dL (0.2-1.2); Calc. Creatinine Clearance 0 mL/min (70-130); Calcium 9.5 mg/dL (7.8-10.44); Carbon Dioxide 20 mmol/L (22-29); Chloride 123 mmol/L (98-107); Glucose 144 mg/dL (70-105); Hemoglobin 9.7 g/dL (14.0-18.0); Lipase 348 U/L (8-78); Mean Corpuscular HGB CONC 32.6 g/dL (32.0-36.0); Mean Corpuscular Hemoglobin 30.7 pg (27.0-31.0); Mean Corpuscular Volume 94.3 fL (78.0-98.0); Mean Platelet Volume 11.3 fL (7.4-10.4); Platelet Count 62 thou/uL (130-400); Platelet Morphology Comment Appears Decreased; Potassium 5.3 mmol/L (3.5-5.1); Protein, Total 6.2 g/dL (6.0-8.3); RBC Distribution Width 15.2 % (11.5-14.5); RBC Morphology Normal; Red Blood Cell (RBC) Count 3.15 mill/uL (4.70-6.10); Sodium 152 mmol/L (136-145); White Blood Cell (WBC) Count 3.6 thou/uL (4.8-10.8)
[2020-05-12] MEDS ORDERED: EPINEPHrine 1 MG/10 ML Abboject SYRINGE ONE (11:24)
[2020-05-12 11:29] LABS: Actual Bicarbonate (HCO3a) 21.6 mEq/L (22-28); Base Excess (BEa) -3.5 mEq/L (-2.0 to +3.0); CO2 Tension 39.2 mmHg (35.0-45.0); Calcium, Ionized (arterial) 1.29 mmol/L (1.12-1.30); Carboxyhemoglobin (COHb) 0.3 gm% (0.0-3.0); O2 Tension (PaO2), arterial 162.6 mmHg (80.0-100.0); Potassium - ABG Lab 4.73 mmol/L (3.70-5.30); pH, Arterial 7.36 (7.35-7.45)
[2020-05-12 11:32] LABS: Puncture Site LRA
[2020-05-12] MEDS ORDERED: Iopamidol-370 76% 500 ML 1 ML ONE (11:53)
[2020-05-12 11:57] LABS: CKMB 13.7 ng/mL (0-6.6)
[2020-05-12] MEDS ORDERED: DOPamine 400 MG/D5W 250 ML 250 ML ONE (12:18)
[2020-05-12] MEDS ORDERED: Vancomycin 1 GM/200 ML BAG ONE (12:18)
[2020-05-12 12:31] LABS: SARS-CoV-2 NAA Rapid Test Not Detected (NotDetected)
[2020-05-12] MEDS ORDERED: Norepinephrine 8 MG/0.9% NS 250 ML IVPB PRN (12:36)
[2020-05-12] MEDS ORDERED: Electrolyte Replacement Protocol 1 EACH IVPB ONE (12:36)
[2020-05-12] MEDS ORDERED: Dextrose 5% in Water 1,000 ML IV PRN (12:39)
[2020-05-12] MEDS ORDERED: Ventilator Sedation Protocol 1 EACH FS SCH (12:45)
[2020-05-12] MEDS ORDERED: Multivitamins, Adult 10 ML, Thiamine HCl 100 MG, Folic Acid 1 MG in Dextrose 5 %-0.45 %... IV SCH (12:45)
[2020-05-12] MEDS ORDERED: Atropine Sulfate 1 mg/1 ml Vial IVP PRN (12:48)
[2020-05-12] MEDS ORDERED: Nitroglycerin 0.4 MG TAB (25 Tab Bottle) SL PRN (12:48)
[2020-05-12] MEDS ORDERED: Fentanyl CADD 100 ML IV SCH (13:00)
[2020-05-12] MEDS ORDERED: Propofol BOLUS 1,000 MG/100 ML VIAL IV PRN (13:00)
[2020-05-12] MEDS ORDERED: Electrolyte Replacement Protocol FS PRN (13:00)
[2020-05-12] MEDS ORDERED: DISCONTINUE PREVIOUS NARCOTIC PAIN MEDICATIONS AND BENZODIAZEPINES FS SCH (13:00)
[2020-05-12] MEDS ORDERED: Fentanyl BOLUS 250 ML IVPB PRN (13:00)
[2020-05-12] MEDS ORDERED: Aspirin Chewable 81 MG TAB PO SCH (13:00)
[2020-05-12] MEDS ORDERED: NEED HT/WT IVPB PRN (13:20)
[2020-05-12] MEDS: Sodium Chloride 0.9% 1,000 ML IV SCH ×2 (14:18→19:19)
[2020-05-12 14:34] LABS: Troponin I 0.024 ng/mL (< 0.028)
[2020-05-12] MEDS ORDERED: levETIRAcetam 2,000 MG in Sodium Chloride 0.9% 100 ML IVPB SCH (15:00)
[2020-05-12] MEDS: DOPamine 400 MG/D5W 250 ML 250 ML IVPB SCH (16:12)
[2020-05-12 16:56] LABS: Albumin 3.4 g/dL (3.5-5.0); Anion Gap 13 mmol/L (10-20); BUN (Urea Nitrogen) 44 mg/dL (8.4-25.7); BUN/Creatinine Ratio 47.83; Calc. Creatinine Clearance 91 mL/min (70-130); Carbon Dioxide 19 mmol/L (22-29); Chloride 121 mmol/L (98-107); Glucose 220 mg/dL (70-105); Phosphorus 2.7 mg/dL (2.3-4.7); Sodium 146 mmol/L (136-145)
[2020-05-12 17:07] LABS: Potassium 7.1 mmol/L (3.5-5.1)
[2020-05-12] MEDS ORDERED: Dextrose 50% Abboject 50 ML SYRINGE SLOW IVP SCH (17:30)
[2020-05-12] MEDS ORDERED: Insulin Regular 300 UNITS/3 ML VIAL IVP SCH (17:30)
[2020-05-12 17:43] LABS: Legionella Urinary Ag Negative (Negative); Strep pneumo Urine Ag NEGATIVE (NEGATIVE)
[2020-05-12] MEDS ORDERED: Calcium Gluc 4.6 MEQ/10 ML (100 MG/ML) SLOW IVP SCH (18:00)
[2020-05-12 18:22] LABS: Potassium 6.6 mmol/L (3.5-5.1)
[2020-05-12] MEDS: levETIRAcetam in NS 1,000 MG in Premix Bag 1 BAG IVPB SCH (21:49)
[2020-05-12] MEDS: Famotidine 40 MG/5 ML Oral Suspension PER TUBE SCH (21:49)
[2020-05-12] MEDS: Famotidine/PF 20 mg/2ml Vial SLOW IVP SCH (21:49)
[2020-05-12] MEDS ORDERED: Dextrose 50% Abboject 50 ML SYRINGE ONE (22:03)
[2020-05-12 22:12] LABS: Hemoglobin 9.4 g/dL (14.0-18.0); Platelet Count 72 thou/uL (130-400)
[2020-05-12] MEDS: Dextrose 50% Abboject 50 ML SYRINGE SLOW IVP PRN (22:20)
[2020-05-12 22:36] LABS: Albumin 3.1 g/dL (3.5-5.0); Anion Gap 13 mmol/L (10-20); BUN (Urea Nitrogen) 45 mg/dL (8.4-25.7); BUN/Creatinine Ratio 41.67; Calc. Creatinine Clearance 77 mL/min (70-130); Calcium 9.1 mg/dL (7.8-10.44); Carbon Dioxide 20 mmol/L (22-29); Chloride 124 mmol/L (98-107); Glucose 38 mg/dL (70-105); Phosphorus 5.1 mg/dL (2.3-4.7); Potassium 6.1 mmol/L (3.5-5.1); Sodium 151 mmol/L (136-145)
[2020-05-12] MEDS ORDERED: Dextrose 5 %-0.45 % NaCl 1,000 ML IV SCH (23:15)
[2020-05-12] MEDS: Propofol 1,000 MG/100 ML VIAL IV PRN (23:35)
[2020-05-12] MEDS: VANCOMYCIN 1.25 GM/250 ML BAG 1.25 GM in Premix Bag 1 BAG IVPB SCH (23:36)
[2020-05-12] MEDS: Cefepime 2 GM in Sodium Chloride 0.9% 100 ML IVPB SCH (23:36)
[2020-05-13] MEDS: DOPamine 400 MG/D5W 250 ML 250 ML IVPB SCH ×5 (02:34→22:39)
[2020-05-13 03:22] LABS: INR-International Normal Ratio 1.2; PTT 40.1 sec (22.9-36.1); Prothrombin Time 15.1 sec (12.0-14.7)
[2020-05-13 03:26] LABS: Band 54 % (5-11); Hemoglobin 9.8 g/dL (14.0-18.0); Hypochromia SLIGHT = 6-15 cells (100X) (0-5/hpf); Lymphocytes 9 % (21-51); MDiff Complete? YES; Mean Corpuscular HGB CONC 33.1 g/dL (32.0-36.0); Mean Corpuscular Hemoglobin 30.9 pg (27.0-31.0); Mean Corpuscular Volume 93.1 fL (78.0-98.0); Metamyelocyte 3 % (0-0); Monocytes 2 % (0-10); Neutrophil 32 % (42-75); Nucleated RBC 3 % (0); Platelet Count 69 thou/uL (130-400); Platelet Morphology Comment Appears Decreased; RBC Distribution Width 15.3 % (11.5-14.5); Red Blood Cell (RBC) Count 3.16 mill/uL (4.70-6.10); Reflex for Review?? YES; White Blood Cell (WBC) Count 6.3 thou/uL (4.8-10.8)
[2020-05-13 03:28] LABS: Lactic Acid 1.1 mmol/L (0.5-2.2)
[2020-05-13 03:30] LABS: Phosphorus 4.2 mg/dL (2.3-4.7)
[2020-05-13 03:32] LABS: ALT (SGPT) 147 U/L (8-55); AST (SGOT) 97 U/L (5-34); Albumin 3.1 g/dL (3.5-5.0); Alkaline Phosphatase 99 U/L (40-110); Anion Gap 15 mmol/L (10-20); BUN (Urea Nitrogen) 45 mg/dL (8.4-25.7); Bilirubin, Total 0.3 mg/dL (0.2-1.2); CK (CPK) 109 U/L (30-200); Calc. Creatinine Clearance 67 mL/min (70-130); Calcium 8.9 mg/dL (7.8-10.44); Carbon Dioxide 16 mmol/L (22-29); Chloride 124 mmol/L (98-107); Globulin 2.8 g/dL (2.4-3.5); Glucose 67 mg/dL (70-105); Lipase 261 U/L (8-78); Magnesium 1.5 mg/dL (1.6-2.6); Potassium 6.3 mmol/L (3.5-5.1); Protein, Total 5.9 g/dL (6.0-8.3); Sodium 149 mmol/L (136-145)
[2020-05-13] MEDS ORDERED: Magnesium 2 GM/50 ML 2 GM in Premix Bag 1 BAG IVPB SCH (06:45)
[2020-05-13] MEDS ORDERED: Sodium Bicarbonate 150 MEQ in Dextrose 5% in Water 1,000 ML IV SCH ×2 (09:00)
[2020-05-13] MEDS ORDERED: FLU VACC QS2020-21(6MOS UP)/PF 60 MCG/0.5 ML SYRINGE IM ONE (09:00)
[2020-05-13] MEDS ORDERED: Prevnar 13-Val Conj/PF 0.5 ML SYRINGE IM ONE (09:00)
[2020-05-13] MEDS: Aspirin Chewable 81 MG TAB PO SCH (09:10)
[2020-05-13] MEDS: Famotidine/PF 20 mg/2ml Vial SLOW IVP SCH ×2 (09:10→21:44)
[2020-05-13] MEDS: levETIRAcetam in NS 1,000 MG in Premix Bag 1 BAG IVPB SCH ×2 (09:11→21:44)
[2020-05-13] MEDS: Famotidine 40 MG/5 ML Oral Suspension PER TUBE SCH ×2 (09:11→21:45)
[2020-05-13] MEDS: Multivitamins, Adult 10 ML, Folic Acid 1 MG, Thiamine HCl 100 MG in Dextrose 5 %-0.45 %... IV SCH (09:25)
[2020-05-13 11:15] LABS: Actual Bicarbonate (HCO3a) 18.4 mEq/L (22-28); Base Excess (BEa) -7.6 mEq/L (-2.0 to +3.0); CO2 Tension 39.2 mmHg (35.0-45.0); Calcium, Ionized (arterial) 1.19 mmol/L (1.12-1.30); Carboxyhemoglobin (COHb) 0.6 gm% (0.0-3.0); Hemoglobin (Hb) 8.7 g/dL (14.0-18.0); O2 Tension (PaO2), arterial 88.6 mmHg (80.0-100.0); Potassium - ABG Lab 5.35 mmol/L (3.70-5.30); pH, Arterial 7.29 (7.35-7.45)
[2020-05-13 11:38] LABS: Puncture Site RBA
[2020-05-13 11:38] LABS: Albumin 2.7 g/dL (3.5-5.0); Anion Gap 14 mmol/L (10-20); BUN (Urea Nitrogen) 43 mg/dL (8.4-25.7); BUN/Creatinine Ratio 29.25; Calc. Creatinine Clearance 54 mL/min (70-130); Calcium 7.9 mg/dL (7.8-10.44); Carbon Dioxide 18 mmol/L (22-29); Chloride 123 mmol/L (98-107); Glucose 213 mg/dL (70-105); Phosphorus 4.8 mg/dL (2.3-4.7); Potassium 5.6 mmol/L (3.5-5.1); Sodium 149 mmol/L (136-145)
[2020-05-13] MEDS: Cefepime 2 GM in Sodium Chloride 0.9% 100 ML IVPB SCH (12:09)
[2020-05-13] MEDS: VANCOMYCIN 1.25 GM/250 ML BAG 1.25 GM in Premix Bag 1 BAG IVPB SCH (12:09)
[2020-05-13 17:01] LABS: Anion Gap 14 mmol/L (10-20); BUN (Urea Nitrogen) 38 mg/dL (8.4-25.7); Calc. Creatinine Clearance 56 mL/min (70-130); Calcium 8.2 mg/dL (7.8-10.44); Carbon Dioxide 19 mmol/L (22-29); Chloride 121 mmol/L (98-107); Glucose 107 mg/dL (70-105); Potassium 5.1 mmol/L (3.5-5.1); Sodium 149 mmol/L (136-145)
[2020-05-13] MEDS ORDERED: Sodium Chloride 0.45% 1,000 ML IV SCH (17:30)
[2020-05-13] MEDS: Propofol 1,000 MG/100 ML VIAL IV PRN (17:31)
[2020-05-13 23:05] LABS: Vancomycin, Trough 25.4 ug/mL
[2020-05-14] MEDS: Cefepime 2 GM in Sodium Chloride 0.9% 100 ML IVPB SCH ×2 (00:51→12:23)
[2020-05-14] MEDS: DOPamine 400 MG/D5W 250 ML 250 ML IVPB SCH ×2 (04:02→09:49)
[2020-05-14 04:56] LABS: ALT (SGPT) 110 U/L (8-55); AST (SGOT) 64 U/L (5-34); Albumin 2.6 g/dL (3.5-5.0); Alkaline Phosphatase 93 U/L (40-110); Anion Gap 11 mmol/L (10-20); BUN (Urea Nitrogen) 37 mg/dL (8.4-25.7); Bilirubin, Total 0.3 mg/dL (0.2-1.2); Calc. Creatinine Clearance 58 mL/min (70-130); Calcium 8.5 mg/dL (7.8-10.44); Carbon Dioxide 21 mmol/L (22-29); Chloride 121 mmol/L (98-107); Globulin 2.9 g/dL (2.4-3.5); Glucose 62 mg/dL (70-105); Potassium 5.3 mmol/L (3.5-5.1); Protein, Total 5.5 g/dL (6.0-8.3); Sodium 148 mmol/L (136-145)
[2020-05-14 05:03] LABS: Eosinophils 1 % (0-10); Hemoglobin 8.3 g/dL (14.0-18.0); Lymphocytes 11 % (21-51); MDiff Complete? YES; Mean Corpuscular HGB CONC 33.3 g/dL (32.0-36.0); Mean Corpuscular Hemoglobin 30.8 pg (27.0-31.0); Mean Corpuscular Volume 92.5 fL (78.0-98.0); Mean Platelet Volume 9.2 fL (7.4-10.4); Metamyelocyte 5 % (0-0); Monocytes 1 % (0-10); Neutrophil 82 % (42-75); Nucleated RBC 2 % (0); Platelet Count 33 thou/uL (130-400); Platelet Morphology Comment Appears Decreased; RBC Distribution Width 15.2 % (11.5-14.5); Red Blood Cell (RBC) Count 2.69 mill/uL (4.70-6.10); White Blood Cell (WBC) Count 5.3 thou/uL (4.8-10.8)
[2020-05-14] MEDS: Multivitamins, Adult 10 ML, Folic Acid 1 MG, Thiamine HCl 100 MG in Dextrose 5 %-0.45 %... IV SCH (07:56)
[2020-05-14] MEDS: Propofol 1,000 MG/100 ML VIAL IV PRN ×2 (07:56→17:39)
[2020-05-14] MEDS: Aspirin Chewable 81 MG TAB PO SCH (08:17)
[2020-05-14] MEDS: Famotidine/PF 20 mg/2ml Vial SLOW IVP SCH ×2 (08:17→21:43)
[2020-05-14] MEDS: levETIRAcetam in NS 1,000 MG in Premix Bag 1 BAG IVPB SCH ×2 (08:18→21:43)
[2020-05-14] MEDS: Famotidine 40 MG/5 ML Oral Suspension PER TUBE SCH ×2 (09:04→21:44)
[2020-05-14] MEDS: Dextrose 50% Abboject 50 ML SYRINGE SLOW IVP PRN (10:16)
[2020-05-14] MEDS: Vancomycin 1 GM in Premix Bag 1 BAG IVPB SCH (12:23)
[2020-05-14] MEDS: Dextrose 5 %-0.45 % NaCl 1,000 ML IV SCH (15:34)
[2020-05-14 16:14] LABS: Anion Gap 12 mmol/L (10-20); BUN (Urea Nitrogen) 32 mg/dL (8.4-25.7); Calc. Creatinine Clearance 52 mL/min (70-130); Calcium 8.5 mg/dL (7.8-10.44); Carbon Dioxide 19 mmol/L (22-29); Chloride 120 mmol/L (98-107); Glucose 81 mg/dL (70-105); Potassium 4.6 mmol/L (3.5-5.1); Sodium 146 mmol/L (136-145)
[2020-05-15] MEDS: DOPamine 400 MG/D5W 250 ML 250 ML IVPB SCH (00:04)
[2020-05-15] MEDS: Cefepime 2 GM in Sodium Chloride 0.9% 100 ML IVPB SCH ×3 (00:05→23:33)
[2020-05-15] MEDS: Vancomycin 1 GM in Premix Bag 1 BAG IVPB SCH ×2 (00:48→12:28)
[2020-05-15 04:28] LABS: Hemoglobin 7.6 g/dL (14.0-18.0); Mean Corpuscular Hemoglobin 30.4 pg (27.0-31.0); Mean Corpuscular Volume 92.2 fL (78.0-98.0); Mean Platelet Volume 13.7 fL (7.4-10.4); Platelet Count 37 thou/uL (130-400); Red Blood Cell (RBC) Count 2.49 mill/uL (4.70-6.10)
[2020-05-15 04:36] LABS: Band 24 % (5-11); Hypochromia SLIGHT = 6-15 cells (100X) (0-5/hpf); Lymphocytes 22 % (21-51); MDiff Complete? YES; Metamyelocyte 2 % (0-0); Monocytes 2 % (0-10); Neutrophil 50 % (42-75); Platelet Morphology Comment Appears Decreased
[2020-05-15 04:40] LABS: ALT (SGPT) 82 U/L (8-55); AST (SGOT) 47 U/L (5-34); Albumin 2.5 g/dL (3.5-5.0); Alkaline Phosphatase 87 U/L (40-110); Anion Gap 10 mmol/L (10-20); BUN (Urea Nitrogen) 33 mg/dL (8.4-25.7); Bilirubin, Total 0.4 mg/dL (0.2-1.2); Calc. Creatinine Clearance 54 mL/min (70-130); Calcium 8.4 mg/dL (7.8-10.44); Carbon Dioxide 20 mmol/L (22-29); Chloride 118 mmol/L (98-107); Globulin 2.9 g/dL (2.4-3.5); Glucose 76 mg/dL (70-105); Potassium 4.2 mmol/L (3.5-5.1); Protein, Total 5.4 g/dL (6.0-8.3); Sodium 144 mmol/L (136-145)
[2020-05-15] MEDS: Propofol 1,000 MG/100 ML VIAL IV PRN (06:01)
[2020-05-15] MEDS: Famotidine 40 MG/5 ML Oral Suspension PER TUBE SCH (08:44)
[2020-05-15] MEDS: Famotidine/PF 20 mg/2ml Vial SLOW IVP SCH ×2 (08:45→19:58)
[2020-05-15] MEDS: Aspirin Chewable 81 MG TAB PO SCH (08:45)
[2020-05-15] MEDS: levETIRAcetam in NS 1,000 MG in Premix Bag 1 BAG IVPB SCH ×2 (08:57→19:58)
[2020-05-15] MEDS: Multivitamins, Adult 10 ML, Folic Acid 1 MG, Thiamine HCl 100 MG in Dextrose 5 %-0.45 %... IV SCH (08:58)
[2020-05-15] MEDS: Lorazepam 2 MG/ML VIAL SLOW IVP PRN (16:56)
[2020-05-15] MEDS: Dextrose 5 %-0.45 % NaCl 1,000 ML IV SCH ×2 (17:49→20:15)
[2020-05-15 23:26] LABS: Vancomycin, Trough 27.4 ug/mL
[2020-05-16] MEDS: Lorazepam 2 MG/ML VIAL SLOW IVP PRN (01:50)
[2020-05-16] MEDS: Morphine 2 MG/ML VIAL SLOW IVP PRN ×2 (01:54→23:43)
[2020-05-16] MEDS: Vancomycin 1 GM in Premix Bag 1 BAG IVPB SCH (01:58)
[2020-05-16 04:38] LABS: Band 34 % (5-11); Hemoglobin 7.2 g/dL (14.0-18.0); Lymphocytes 14 % (21-51); MDiff Complete? YES; Mean Corpuscular HGB CONC 33.7 g/dL (32.0-36.0); Mean Corpuscular Hemoglobin 30.9 pg (27.0-31.0); Mean Corpuscular Volume 91.6 fL (78.0-98.0); Monocytes 2 % (0-10); Neutrophil 50 % (42-75); Nucleated RBC 1 % (0); Platelet Count 33 thou/uL (130-400); Platelet Morphology Comment Appears Decreased; Red Blood Cell (RBC) Count 2.33 mill/uL (4.70-6.10); White Blood Cell (WBC) Count 4.3 thou/uL (4.8-10.8)
[2020-05-16 04:51] LABS: ALT (SGPT) 73 U/L (8-55); AST (SGOT) 42 U/L (5-34); Albumin 2.4 g/dL (3.5-5.0); Alkaline Phosphatase 92 U/L (40-110); Anion Gap 11 mmol/L (10-20); BUN (Urea Nitrogen) 26 mg/dL (8.4-25.7); Bilirubin, Total 0.5 mg/dL (0.2-1.2); Calc. Creatinine Clearance 59 mL/min (70-130); Calcium 8.3 mg/dL (7.8-10.44); Carbon Dioxide 18 mmol/L (22-29); Chloride 117 mmol/L (98-107); Glucose 83 mg/dL (70-105); Potassium 3.9 mmol/L (3.5-5.1); Protein, Total 5.4 g/dL (6.0-8.3); Sodium 142 mmol/L (136-145)
[2020-05-16 08:27] LABS: Actual Bicarbonate (HCO3a) 19.3 mEq/L (22-28); Analyzer IN Cardio ER; Base Excess (BEa) -4.5 mEq/L (-2.0 to +3.0); CO2 Tension 30.2 mmHg (35.0-45.0); Calcium, Ionized (arterial) 1.25 mmol/L (1.12-1.30); Carboxyhemoglobin (COHb) 0.8 gm% (0.0-3.0); Hemoglobin (Hb) 7.9 g/dL (14.0-18.0); O2 Tension (PaO2), arterial 61.9 mmHg (80.0-100.0); Potassium - ABG Lab 3.78 mmol/L (3.70-5.30); pH, Arterial 7.42 (7.35-7.45)
[2020-05-16 08:28] LABS: Puncture Site LRA
[2020-05-16] MEDS: Famotidine/PF 20 mg/2ml Vial SLOW IVP SCH ×2 (09:04→21:37)
[2020-05-16] MEDS: levETIRAcetam in NS 1,000 MG in Premix Bag 1 BAG IVPB SCH ×2 (09:05→21:37)
[2020-05-16] MEDS: Aspirin Chewable 81 MG TAB PO SCH (09:08)
[2020-05-16] MEDS: Multivitamins, Adult 10 ML, Folic Acid 1 MG, Thiamine HCl 100 MG in Dextrose 5 %-0.45 %... IV SCH (09:24)
[2020-05-16] MEDS: Dextrose 5 %-0.45 % NaCl 1,000 ML IV SCH ×2 (10:47→23:44)
[2020-05-16] MEDS: Cefepime 2 GM in Sodium Chloride 0.9% 100 ML IVPB SCH ×2 (11:41→23:43)
[2020-05-16] MEDS: VANCOMYCIN 1.25 GM/250 ML BAG 1.25 GM in Premix Bag 1 BAG IVPB SCH (12:37)
[2020-05-16] MEDS ORDERED: Sodium Bicarbonate Tab 325 MG TAB PER TUBE PRN (16:15)
[2020-05-16] MEDS ORDERED: Pancrelipase DR 12,000 1 CAP FS PRN (16:15)
[2020-05-17 03:48] LABS: Reticulocyte Count 0.4 % (0.5-1.5)
[2020-05-17 04:05] LABS: Band 33 % (5-11); Hemoglobin 9.9 g/dL (14.0-18.0); Hypochromia SLIGHT = 6-15 cells (100X) (0-5/hpf); Lymphocytes 12 % (21-51); MDiff Complete? YES; Mean Corpuscular HGB CONC 32.1 g/dL (32.0-36.0); Mean Corpuscular Hemoglobin 29.5 pg (27.0-31.0); Mean Corpuscular Volume 91.9 fL (78.0-98.0); Monocytes 9 % (0-10); Neutrophil 43 % (42-75); Nucleated RBC 1 % (0); Platelet Count 43 thou/uL (130-400); Platelet Morphology Comment Appears Decreased; RBC Distribution Width 14.7 % (11.5-14.5); Reactive Lymphocytes 3 % (0-10); Red Blood Cell (RBC) Count 3.35 mill/uL (4.70-6.10); Toxic Granulation SLIGHT; White Blood Cell (WBC) Count 6.2 thou/uL (4.8-10.8)
[2020-05-17 04:10] LABS: ALT (SGPT) 129 U/L (8-55); AST (SGOT) 136 U/L (5-34); Albumin 2.6 g/dL (3.5-5.0); Alkaline Phosphatase 293 U/L (40-110); Anion Gap 11 mmol/L (10-20); BUN (Urea Nitrogen) 30 mg/dL (8.4-25.7); Bilirubin, Total 0.5 mg/dL (0.2-1.2); Calc. Creatinine Clearance 56 mL/min (70-130); Calcium 8.7 mg/dL (7.8-10.44); Carbon Dioxide 16 mmol/L (22-29); Chloride 118 mmol/L (98-107); Globulin 3.3 g/dL (2.4-3.5); Glucose 112 mg/dL (70-105); Iron 34 ug/dL (65-175); Protein, Total 5.9 g/dL (6.0-8.3); Sodium 141 mmol/L (136-145)
[2020-05-17] MEDS: Morphine 2 MG/ML VIAL SLOW IVP PRN (04:41)
[2020-05-17] MEDS: Lorazepam 2 MG/ML VIAL SLOW IVP PRN (04:41)
[2020-05-17] MEDS: Dextrose 5 %-0.45 % NaCl 1,000 ML IV SCH (05:17)
[2020-05-17 05:34] LABS: Ferritin 2957.68 ng/mL (22-322)
[2020-05-17 07:57] LABS: Actual Bicarbonate (HCO3a) 16.5 mEq/L (22-28); Base Excess (BEa) -7.1 mEq/L (-2.0 to +3.0); Carboxyhemoglobin (COHb) 0.2 gm% (0.0-3.0); Hemoglobin (Hb) 10.1 g/dL (14.0-18.0); O2 Tension (PaO2), arterial 72.6 mmHg (80.0-100.0); Potassium - ABG Lab 4.06 mmol/L (3.70-5.30)
[2020-05-17 07:59] LABS: Puncture Site RRA
[2020-05-17] MEDS: Multivitamins, Adult 10 ML, Folic Acid 1 MG, Thiamine HCl 100 MG in Dextrose 5 %-0.45 %... IV SCH (08:04)
[2020-05-17] MEDS: Famotidine/PF 20 mg/2ml Vial SLOW IVP SCH ×2 (08:42→19:59)
[2020-05-17] MEDS: Aspirin Chewable 81 MG TAB PO SCH (08:43)
[2020-05-17] MEDS: levETIRAcetam in NS 1,000 MG in Premix Bag 1 BAG IVPB SCH ×2 (08:43→19:59)
[2020-05-17] MEDS: Cefepime 2 GM in Sodium Chloride 0.9% 100 ML IVPB SCH (11:59)
[2020-05-17] MEDS: VANCOMYCIN 1.25 GM/250 ML BAG 1.25 GM in Premix Bag 1 BAG IVPB SCH (12:37)
[2020-05-17] MEDS ORDERED: Iron, Sodium Ferric Gluconate 250 MG in Sodium Chloride 0.9% 100 ML IVPB SCH (15:30)
[2020-05-17] MEDS: Scopolamine 1.5 mg/72 hour Patch TD SCH (16:27)
[2020-05-17] MEDS ORDERED: Dextrose 5 %-0.45 % NaCl 1,000 ML IV SCH (16:50)
[2020-05-18] MEDS: Cefepime 2 GM in Sodium Chloride 0.9% 100 ML IVPB SCH ×2 (00:30→12:03)
[2020-05-18 05:25] LABS: ALT (SGPT) 112 U/L (8-55); AST (SGOT) 87 U/L (5-34); Albumin 2.5 g/dL (3.5-5.0); Alkaline Phosphatase 243 U/L (40-110); Anion Gap 12 mmol/L (10-20); BUN (Urea Nitrogen) 31 mg/dL (8.4-25.7); Bilirubin, Total 0.3 mg/dL (0.2-1.2); Calc. Creatinine Clearance 64 mL/min (70-130); Calcium 8.9 mg/dL (7.8-10.44); Carbon Dioxide 17 mmol/L (22-29); Chloride 119 mmol/L (98-107); Globulin 3.4 g/dL (2.4-3.5); Glucose 93 mg/dL (70-105); Protein, Total 5.9 g/dL (6.0-8.3); Sodium 144 mmol/L (136-145)
[2020-05-18 05:49] LABS: Band 41 % (5-11); Eosinophils 1 % (0-10); Hemoglobin 9.6 g/dL (14.0-18.0); Lymphocytes 14 % (21-51); MDiff Complete? YES; Mean Corpuscular HGB CONC 33.1 g/dL (32.0-36.0); Mean Corpuscular Hemoglobin 30.6 pg (27.0-31.0); Mean Corpuscular Volume 92.5 fL (78.0-98.0); Mean Platelet Volume 8.3 fL (7.4-10.4); Monocytes 2 % (0-10); Neutrophil 42 % (42-75); Platelet Count 52 thou/uL (130-400); Platelet Morphology Comment Appears Decreased; RBC Distribution Width 14.6 % (11.5-14.5); Red Blood Cell (RBC) Count 3.14 mill/uL (4.70-6.10); White Blood Cell (WBC) Count 6.7 thou/uL (4.8-10.8)
[2020-05-18] MEDS: Aspirin Chewable 81 MG TAB PO SCH (09:01)
[2020-05-18] MEDS: Famotidine/PF 20 mg/2ml Vial SLOW IVP SCH ×2 (09:06→20:00)
[2020-05-18] MEDS: levETIRAcetam in NS 1,000 MG in Premix Bag 1 BAG IVPB SCH ×2 (09:07→19:59)
[2020-05-18] MEDS: Multivitamins, Adult 10 ML, Folic Acid 1 MG, Thiamine HCl 100 MG in Dextrose 5 %-0.45 %... IV SCH (09:14)
[2020-05-18] MEDS: hydrALAZINE 20 MG/ML VIAL SLOW IVP PRN (09:35)
[2020-05-18] MEDS: Lorazepam 2 MG/ML VIAL SLOW IVP PRN ×2 (12:03→20:00)
[2020-05-18 12:29] LABS: Actual Bicarbonate (HCO3a) 17.7 mEq/L (22-28); Base Excess (BEa) -6.6 mEq/L (-2.0 to +3.0); CO2 Tension 30.9 mmHg (35.0-45.0); Calcium, Ionized (arterial) 1.31 mmol/L (1.12-1.30); Carboxyhemoglobin (COHb) 0.1 gm% (0.0-3.0); Hemoglobin (Hb) 9.7 g/dL (14.0-18.0); Potassium - ABG Lab 3.79 mmol/L (3.70-5.30); pH, Arterial 7.38 (7.35-7.45)
[2020-05-18 12:32] LABS: O2 Tension (PaO2), arterial 54.2 mmHg (80.0-100.0)
[2020-05-18 12:33] LABS: Puncture Site LRA
[2020-05-18] MEDS: Morphine 2 MG/ML VIAL SLOW IVP PRN (12:34)
[2020-05-18 12:35] LABS: ALV-art Gradient 56.905 mmHg (0-20)
[2020-05-18] MEDS: VANCOMYCIN 1.25 GM/250 ML BAG 1.25 GM in Premix Bag 1 BAG IVPB SCH (13:13)
[2020-05-18] MEDS ORDERED: Fentanyl CADD 0 ML ONE (13:39)
[2020-05-18] MEDS ORDERED: Fentanyl CADD 100 ML IV SCH (13:45)
[2020-05-18] MEDS ORDERED: Fentanyl BOLUS 250 ML IVPB PRN (13:45)
[2020-05-18] MEDS ORDERED: Fentanyl CADD 100 ML ONE (14:19)
[2020-05-18] MEDS ORDERED: Atropine Sulfate 1 mg/10 ml Syringe ONE (20:03)
[2020-05-19] MEDS: Cefepime 2 GM in Sodium Chloride 0.9% 100 ML IVPB SCH ×3 (00:37→23:23)
[2020-05-19 04:41] LABS: Hemoglobin 8.6 g/dL (14.0-18.0); Mean Corpuscular HGB CONC 33.5 g/dL (32.0-36.0); Mean Corpuscular Hemoglobin 30.7 pg (27.0-31.0); Mean Corpuscular Volume 91.6 fL (78.0-98.0); Mean Platelet Volume 11.2 fL (7.4-10.4); Platelet Count 60 thou/uL (130-400); RBC Distribution Width 14.9 % (11.5-14.5); Red Blood Cell (RBC) Count 2.81 mill/uL (4.70-6.10); White Blood Cell (WBC) Count 5.1 thou/uL (4.8-10.8)
[2020-05-19 04:52] LABS: Anisocytosis SLIGHT = 6-15 cells (100X) (0-5/hpf); Band 7 % (5-11); Eosinophils 1 % (0-10); Lymphocytes 7 % (21-51); MDiff Complete? YES; Monocytes 5 % (0-10); Neutrophil 80 % (42-75); Platelet Morphology Comment Appears Decreased
[2020-05-19 04:56] LABS: ALT (SGPT) 97 U/L (8-55); AST (SGOT) 71 U/L (5-34); Albumin 2.4 g/dL (3.5-5.0); Alkaline Phosphatase 197 U/L (40-110); Anion Gap 13 mmol/L (10-20); BUN (Urea Nitrogen) 27 mg/dL (8.4-25.7); Bilirubin, Total 0.2 mg/dL (0.2-1.2); Calc. Creatinine Clearance 78 mL/min (70-130); Calcium 8.8 mg/dL (7.8-10.44); Carbon Dioxide 16 mmol/L (22-29); Chloride 121 mmol/L (98-107); Globulin 3.1 g/dL (2.4-3.5); Glucose 86 mg/dL (70-105); Potassium 3.8 mmol/L (3.5-5.1); Protein, Total 5.5 g/dL (6.0-8.3); Sodium 146 mmol/L (136-145)
[2020-05-19] MEDS: Dextrose 5% in Water 1,000 ML IV SCH ×2 (08:52→21:04)
[2020-05-19] MEDS: Haloperidol Lactate 5 MG/ML VIAL IM SCH ×2 (08:53→18:37)
[2020-05-19] MEDS: Aspirin Chewable 81 MG TAB PO SCH (08:53)
[2020-05-19] MEDS: Famotidine/PF 20 mg/2ml Vial SLOW IVP SCH ×2 (08:53→20:31)
[2020-05-19] MEDS: levETIRAcetam in NS 1,000 MG in Premix Bag 1 BAG IVPB SCH ×2 (08:54→20:31)
[2020-05-19] MEDS: Multivitamins, Adult 10 ML, Folic Acid 1 MG, Thiamine HCl 100 MG in Dextrose 5 %-0.45 %... IV SCH (09:31)
[2020-05-19] MEDS: Midazolam HCl 2 mg/2 ml Vial SLOW IVP PRN (11:43)
[2020-05-19] MEDS: hydrALAZINE 20 MG/ML VIAL SLOW IVP PRN (21:17)
[2020-05-20] MEDS: Midazolam HCl 2 mg/2 ml Vial SLOW IVP PRN ×2 (01:54→13:10)
[2020-05-20 04:31] LABS: ALT (SGPT) 104 U/L (8-55); AST (SGOT) 77 U/L (5-34); Albumin 2.6 g/dL (3.5-5.0); Alkaline Phosphatase 214 U/L (40-110); Anion Gap 10 mmol/L (10-20); BUN (Urea Nitrogen) 21 mg/dL (8.4-25.7); Bilirubin, Total 0.2 mg/dL (0.2-1.2); Calc. Creatinine Clearance 93 mL/min (70-130); Carbon Dioxide 19 mmol/L (22-29); Chloride 117 mmol/L (98-107); Globulin 3.3 g/dL (2.4-3.5); Glucose 100 mg/dL (70-105); Potassium 3.6 mmol/L (3.5-5.1); Protein, Total 5.9 g/dL (6.0-8.3); Sodium 142 mmol/L (136-145)
[2020-05-20 04:37] LABS: Hemoglobin 8.6 g/dL (14.0-18.0); Mean Corpuscular HGB CONC 33.2 g/dL (32.0-36.0); Mean Corpuscular Hemoglobin 30.7 pg (27.0-31.0); Mean Corpuscular Volume 92.4 fL (78.0-98.0); Mean Platelet Volume 11.1 fL (7.4-10.4); Platelet Count 86 thou/uL (130-400); RBC Distribution Width 14.7 % (11.5-14.5); Red Blood Cell (RBC) Count 2.82 mill/uL (4.70-6.10); White Blood Cell (WBC) Count 5.6 thou/uL (4.8-10.8)
[2020-05-20 04:56] LABS: Band 8 % (5-11); Eosinophils 1 % (0-10); Lymphocytes 16 % (21-51); MDiff Complete? YES; Monocytes 7 % (0-10); Myelocyte 1 % (0-0); Neutrophil 67 % (42-75); Platelet Morphology Comment Appears Decreased
[2020-05-20] MEDS: Haloperidol Lactate 5 MG/ML VIAL IM SCH ×2 (05:54→18:07)
[2020-05-20] MEDS: Aspirin Chewable 81 MG TAB PO SCH (08:42)
[2020-05-20] MEDS: Famotidine/PF 20 mg/2ml Vial SLOW IVP SCH ×2 (08:42→20:11)
[2020-05-20] MEDS: levETIRAcetam in NS 1,000 MG in Premix Bag 1 BAG IVPB SCH ×2 (08:43→20:30)
[2020-05-20] MEDS: GUAIFENESIN SF SOLN 200 MG/10 ML UDCUP PO SCH ×3 (09:00→20:23)
[2020-05-20] MEDS: Multivitamins, Adult 10 ML, Folic Acid 1 MG, Thiamine HCl 100 MG in Dextrose 5 %-0.45 %... IV SCH (09:03)
[2020-05-20] MEDS: Dextrose 5% in Water 1,000 ML IV SCH (10:46)
[2020-05-20] MEDS: Cefepime 2 GM in Sodium Chloride 0.9% 100 ML IVPB SCH (12:29)
[2020-05-20] MEDS: Fentanyl CADD 100 ML IV SCH (13:51)
[2020-05-20] MEDS: Scopolamine 1.5 mg/72 hour Patch TD SCH (14:59)
[2020-05-21] MEDS: Cefepime 2 GM in Sodium Chloride 0.9% 100 ML IVPB SCH ×2 (00:58→11:36)
[2020-05-21] MEDS: Dextrose 5% in Water 1,000 ML IV SCH ×2 (00:59→14:15)
[2020-05-21] MEDS: GUAIFENESIN SF SOLN 200 MG/10 ML UDCUP PO SCH ×4 (01:15→19:33)
[2020-05-21] MEDS: Haloperidol Lactate 5 MG/ML VIAL IM PRN ×2 (03:04→16:42)
[2020-05-21 04:53] LABS: Hemoglobin 8.6 g/dL (14.0-18.0); Mean Corpuscular HGB CONC 33.3 g/dL (32.0-36.0); Mean Corpuscular Hemoglobin 30.6 pg (27.0-31.0); Mean Corpuscular Volume 91.7 fL (78.0-98.0); Mean Platelet Volume 10.7 fL (7.4-10.4); Platelet Count 110 thou/uL (130-400); RBC Distribution Width 14.8 % (11.5-14.5); White Blood Cell (WBC) Count 5.7 thou/uL (4.8-10.8)
[2020-05-21 04:56] LABS: ALT (SGPT) 93 U/L (8-55); AST (SGOT) 63 U/L (5-34); Albumin 2.5 g/dL (3.5-5.0); Alkaline Phosphatase 211 U/L (40-110); Anion Gap 11 mmol/L (10-20); BUN (Urea Nitrogen) 16 mg/dL (8.4-25.7); Bilirubin, Total 0.2 mg/dL (0.2-1.2); Calc. Creatinine Clearance 95 mL/min (70-130); Calcium 8.9 mg/dL (7.8-10.44); Carbon Dioxide 20 mmol/L (22-29); Chloride 113 mmol/L (98-107); Globulin 3.2 g/dL (2.4-3.5); Glucose 81 mg/dL (70-105); Potassium 3.6 mmol/L (3.5-5.1); Protein, Total 5.7 g/dL (6.0-8.3); Sodium 140 mmol/L (136-145)
[2020-05-21 06:09] LABS: Anisocytosis SLIGHT = 6-15 cells (100X) (0-5/hpf); Band 18 % (5-11); Eosinophils 1 % (0-10); Lymphocytes 15 % (21-51); MDiff Complete? YES; Monocytes 3 % (0-10); Neutrophil 63 % (42-75); Platelet Morphology Comment Appears Decreased
[2020-05-21] MEDS: Haloperidol Lactate 5 MG/ML VIAL IM SCH ×2 (06:40→19:00)
[2020-05-21 07:31] LABS: Hemoglobin 8.2 g/dL (14.0-18.0); Mean Corpuscular HGB CONC 33.3 g/dL (32.0-36.0); Mean Corpuscular Hemoglobin 30.6 pg (27.0-31.0); Mean Corpuscular Volume 91.9 fL (78.0-98.0); Mean Platelet Volume 10.9 fL (7.4-10.4); Platelet Count 113 thou/uL (130-400); RBC Distribution Width 14.8 % (11.5-14.5); Red Blood Cell (RBC) Count 2.67 mill/uL (4.70-6.10)
[2020-05-21] MEDS ORDERED: Furosemide 40 MG/4 ML VIAL SLOW IVP SCH (08:00)
[2020-05-21] MEDS: Multivitamins, Adult 10 ML, Folic Acid 1 MG, Thiamine HCl 100 MG in Dextrose 5 %-0.45 %... IV SCH (09:24)
[2020-05-21] MEDS: levETIRAcetam in NS 1,000 MG in Premix Bag 1 BAG IVPB SCH ×2 (09:24→19:34)
[2020-05-21] MEDS: Aspirin Chewable 81 MG TAB PO SCH (09:25)
[2020-05-21] MEDS: Famotidine/PF 20 mg/2ml Vial SLOW IVP SCH ×2 (09:25→19:33)
[2020-05-21] MEDS: Dextrose 50% Abboject 50 ML SYRINGE SLOW IVP PRN ×2 (17:25→19:33)
[2020-05-21] MEDS: Fentanyl CADD 100 ML IV SCH (19:00)
[2020-05-22] MEDS: Cefepime 2 GM in Sodium Chloride 0.9% 100 ML IVPB SCH (00:11)
[2020-05-22] MEDS: Dextrose 5% in Water 1,000 ML IV SCH ×2 (00:11→16:43)
[2020-05-22] MEDS: GUAIFENESIN SF SOLN 200 MG/10 ML UDCUP PO SCH ×4 (03:05→20:38)
[2020-05-22 04:22] LABS: Band 13 % (5-11); Eosinophils 3 % (0-10); Hemoglobin 8.3 g/dL (14.0-18.0); Lymphocytes 4 % (21-51); MDiff Complete? YES; Mean Corpuscular HGB CONC 32.8 g/dL (32.0-36.0); Mean Corpuscular Hemoglobin 30.1 pg (27.0-31.0); Mean Corpuscular Volume 91.8 fL (78.0-98.0); Mean Platelet Volume 9.9 fL (7.4-10.4); Monocytes 6 % (0-10); Neutrophil 74 % (42-75); Platelet Count 155 thou/uL (130-400); RBC Distribution Width 14.6 % (11.5-14.5); Red Blood Cell (RBC) Count 2.77 mill/uL (4.70-6.10); White Blood Cell (WBC) Count 7.3 thou/uL (4.8-10.8)
[2020-05-22 04:31] LABS: ALT (SGPT) 92 U/L (8-55); AST (SGOT) 66 U/L (5-34); Albumin 2.5 g/dL (3.5-5.0); Alkaline Phosphatase 226 U/L (40-110); Anion Gap 11 mmol/L (10-20); BUN (Urea Nitrogen) 17 mg/dL (8.4-25.7); Bilirubin, Total 0.2 mg/dL (0.2-1.2); Calc. Creatinine Clearance 101 mL/min (70-130); Carbon Dioxide 23 mmol/L (22-29); Chloride 111 mmol/L (98-107); Globulin 3.4 g/dL (2.4-3.5); Glucose 96 mg/dL (70-105); Potassium 3.4 mmol/L (3.5-5.1); Protein, Total 5.9 g/dL (6.0-8.3); Sodium 142 mmol/L (136-145)
[2020-05-22] MEDS ORDERED: Potassium Chloride 40 MEQ in Premix Bag 1 BAG IVPB SCH (05:00)
[2020-05-22] MEDS: Haloperidol Lactate 5 MG/ML VIAL IM SCH (05:46)
[2020-05-22] MEDS ORDERED: Gentamicin 80 MG/2 ML VIAL ONE (07:53)
[2020-05-22] MEDS ORDERED: CEFAZOLIN 1 GM VIAL ONE (07:53)
[2020-05-22] MEDS: Midazolam HCl 2 mg/2 ml Vial SLOW IVP PRN (08:06)
[2020-05-22] MEDS: levETIRAcetam in NS 1,000 MG in Premix Bag 1 BAG IVPB SCH ×2 (10:33→20:39)
[2020-05-22] MEDS: Multivitamins, Adult 10 ML, Folic Acid 1 MG, Thiamine HCl 100 MG in Dextrose 5 %-0.45 %... IV SCH (11:47)
[2020-05-22] MEDS: Aspirin Chewable 81 MG TAB PO SCH (11:47)
[2020-05-22] MEDS: Famotidine/PF 20 mg/2ml Vial SLOW IVP SCH ×2 (11:48→20:39)
[2020-05-23] MEDS: GUAIFENESIN SF SOLN 200 MG/10 ML UDCUP PO SCH ×4 (02:04→21:21)
[2020-05-23 04:15] LABS: ALT (SGPT) 80 U/L (8-55); AST (SGOT) 57 U/L (5-34); Albumin 2.8 g/dL (3.5-5.0); Alkaline Phosphatase 235 U/L (40-110); Anion Gap 13 mmol/L (10-20); BUN (Urea Nitrogen) 11 mg/dL (8.4-25.7); Bilirubin, Total 0.5 mg/dL (0.2-1.2); Calc. Creatinine Clearance 99 mL/min (70-130); Calcium 9.3 mg/dL (7.8-10.44); Carbon Dioxide 24 mmol/L (22-29); Chloride 109 mmol/L (98-107); Globulin 3.6 g/dL (2.4-3.5); Glucose 93 mg/dL (70-105); Potassium 3.4 mmol/L (3.5-5.1); Protein, Total 6.4 g/dL (6.0-8.3); Sodium 143 mmol/L (136-145)
[2020-05-23 05:36] LABS: Band 11 % (5-11); Eosinophils 2 % (0-10); Hemoglobin 9.2 g/dL (14.0-18.0); Lymphocytes 6 % (21-51); MDiff Complete? YES; Mean Corpuscular HGB CONC 34.5 g/dL (32.0-36.0); Mean Corpuscular Hemoglobin 31.3 pg (27.0-31.0); Mean Corpuscular Volume 90.5 fL (78.0-98.0); Mean Platelet Volume 8.8 fL (7.4-10.4); Monocytes 6 % (0-10); Neutrophil 75 % (42-75); Platelet Count 211 thou/uL (130-400); RBC Distribution Width 14.4 % (11.5-14.5); Red Blood Cell (RBC) Count 2.95 mill/uL (4.70-6.10)
[2020-05-23] MEDS: Potassium Chloride 40 MEQ in Premix Bag 1 BAG IVPB SCH ×2 (06:09→15:00)
[2020-05-23] MEDS: Dextrose 5% in Water 1,000 ML IV SCH ×2 (06:10→17:12)
[2020-05-23] MEDS: Potassium Chloride 20 MEQ in Premix Bag 1 BAG IVPB SCH ×2 (06:20→10:02)
[2020-05-23] MEDS: levETIRAcetam in NS 1,000 MG in Premix Bag 1 BAG IVPB SCH (09:56)
[2020-05-23] MEDS: Famotidine/PF 20 mg/2ml Vial SLOW IVP SCH ×2 (09:57→21:21)
[2020-05-23] MEDS: Multivitamins, Adult 10 ML, Folic Acid 1 MG, Thiamine HCl 100 MG in Dextrose 5 %-0.45 %... IV SCH (14:26)
[2020-05-23] MEDS: Scopolamine 1.5 mg/72 hour Patch TD SCH (16:14)
[2020-05-23] MEDS: Amlodipine 5 MG TAB PO SCH (17:32)
[2020-05-23] MEDS: levETIRAcetam 500 MG TAB PO SCH (21:21)
[2020-05-24] MEDS: GUAIFENESIN SF SOLN 200 MG/10 ML UDCUP PO SCH ×4 (01:55→19:55)
[2020-05-24 07:54] LABS: Hemoglobin 9.2 g/dL (14.0-18.0); Mean Corpuscular HGB CONC 33.7 g/dL (32.0-36.0); Mean Corpuscular Hemoglobin 30.6 pg (27.0-31.0); Mean Corpuscular Volume 90.8 fL (78.0-98.0); Mean Platelet Volume 8.4 fL (7.4-10.4); Platelet Count 271 thou/uL (130-400); RBC Distribution Width 14.3 % (11.5-14.5); Red Blood Cell (RBC) Count 3.01 mill/uL (4.70-6.10); White Blood Cell (WBC) Count 8.2 thou/uL (4.8-10.8)
[2020-05-24 08:06] LABS: ALT (SGPT) 65 U/L (8-55); AST (SGOT) 43 U/L (5-34); Albumin 2.9 g/dL (3.5-5.0); Alkaline Phosphatase 211 U/L (40-110); Anion Gap 14 mmol/L (10-20); BUN (Urea Nitrogen) 14 mg/dL (8.4-25.7); Bilirubin, Total 0.5 mg/dL (0.2-1.2); Calc. Creatinine Clearance 78 mL/min (70-130); Carbon Dioxide 23 mmol/L (22-29); Chloride 108 mmol/L (98-107); Globulin 3.6 g/dL (2.4-3.5); Glucose 77 mg/dL (70-105); Magnesium 1.9 mg/dL (1.6-2.6); Potassium 3.7 mmol/L (3.5-5.1); Protein, Total 6.5 g/dL (6.0-8.3); Sodium 141 mmol/L (136-145)
[2020-05-24] MEDS: Famotidine/PF 20 mg/2ml Vial SLOW IVP SCH ×2 (08:12→21:38)
[2020-05-24] MEDS: hydrALAZINE 20 MG/ML VIAL SLOW IVP PRN (08:13)
[2020-05-24] MEDS: Multivit, Chewable SF 1 TAB PO SCH (08:13)
[2020-05-24] MEDS: Thiamine 100 MG TAB PO SCH (08:13)
[2020-05-24] MEDS: Folic Acid 1 MG TAB PO SCH (08:13)
[2020-05-24] MEDS: levETIRAcetam 500 MG TAB PO SCH ×2 (08:13→21:38)
[2020-05-24] MEDS ORDERED: Magnesium 2 GM/50 ML 2 GM in Premix Bag 1 BAG IVPB SCH (08:30)
[2020-05-24] MEDS: Dextrose 5% in Water 1,000 ML IV SCH ×2 (08:33→21:39)
[2020-05-24 09:12] LABS: Band 6 % (5-11); Eosinophils 3 % (0-10); Lymphocytes 19 % (21-51); MDiff Complete? YES; Monocytes 6 % (0-10); Neutrophil 66 % (42-75); RBC Morphology Normal
[2020-05-24 09:50] VITALS: BMI 19.1
[2020-05-24] MEDS: Amlodipine 5 MG TAB PO SCH (17:06)
[2020-05-25] MEDS: GUAIFENESIN SF SOLN 200 MG/10 ML UDCUP PO SCH ×4 (04:02→21:45)
[2020-05-25 05:37] LABS: Hemoglobin 7.6 g/dL (14.0-18.0); Mean Corpuscular HGB CONC 32.5 g/dL (32.0-36.0); Mean Corpuscular Hemoglobin 29.3 pg (27.0-31.0); Mean Corpuscular Volume 90.1 fL (78.0-98.0); Mean Platelet Volume 8.2 fL (7.4-10.4); Platelet Count 315 thou/uL (130-400); RBC Distribution Width 14.4 % (11.5-14.5); Red Blood Cell (RBC) Count 2.61 mill/uL (4.70-6.10); White Blood Cell (WBC) Count 6.9 thou/uL (4.8-10.8)
[2020-05-25 05:40] LABS: ALT (SGPT) 51 U/L (8-55); AST (SGOT) 31 U/L (5-34); Albumin 2.5 g/dL (3.5-5.0); Alkaline Phosphatase 160 U/L (40-110); Anion Gap 13 mmol/L (10-20); BUN (Urea Nitrogen) 14 mg/dL (8.4-25.7); Bilirubin, Total 0.3 mg/dL (0.2-1.2); Calc. Creatinine Clearance 82 mL/min (70-130); Calcium 8.4 mg/dL (7.8-10.44); Carbon Dioxide 23 mmol/L (22-29); Chloride 108 mmol/L (98-107); Globulin 3.1 g/dL (2.4-3.5); Glucose 82 mg/dL (70-105); Potassium 3.2 mmol/L (3.5-5.1); Protein, Total 5.6 g/dL (6.0-8.3); Sodium 141 mmol/L (136-145)
[2020-05-25 05:54] LABS: Band 10 % (5-11); Eosinophils 2 % (0-10); Lymphocytes 26 % (21-51); MDiff Complete? YES; Monocytes 7 % (0-10); Neutrophil 55 % (42-75)
[2020-05-25] MEDS ORDERED: Potassium Chloride 20 MEQ TAB PO SCH (06:30)
[2020-05-25] MEDS: Thiamine 100 MG TAB PO SCH (09:26)
[2020-05-25] MEDS: levETIRAcetam 500 MG TAB PO SCH ×2 (09:26→21:45)
[2020-05-25] MEDS: Famotidine/PF 20 mg/2ml Vial SLOW IVP SCH (09:27)
[2020-05-25] MEDS: Folic Acid 1 MG TAB PO SCH (09:27)
[2020-05-25] MEDS: Multivit, Chewable SF 1 TAB PO SCH (09:27)
[2020-05-25] MEDS: Dextrose 5% in Water 1,000 ML IV SCH ×2 (10:14→12:08)
[2020-05-25 17:06] LABS: Hemoglobin 7.8 g/dL (14.0-18.0); Platelet Count 319 thou/uL (130-400)
[2020-05-25] MEDS: Amlodipine 5 MG TAB PO SCH (18:15)
[2020-05-25] MEDS: Famotidine 20 MG TAB PO SCH (21:45)
[2020-05-26] MEDS: GUAIFENESIN SF SOLN 200 MG/10 ML UDCUP PO SCH ×3 (01:18→14:57)
[2020-05-26] MEDS: Dextrose 5% in Water 1,000 ML IV SCH (01:19)
[2020-05-26 04:55] LABS: Hemoglobin 8.2 g/dL (14.0-18.0); Mean Corpuscular HGB CONC 33.5 g/dL (32.0-36.0); Mean Corpuscular Hemoglobin 30.2 pg (27.0-31.0); Mean Corpuscular Volume 90.2 fL (78.0-98.0); Mean Platelet Volume 7.3 fL (7.4-10.4); Platelet Count 330 thou/uL (130-400); RBC Distribution Width 14.4 % (11.5-14.5); Red Blood Cell (RBC) Count 2.71 mill/uL (4.70-6.10); White Blood Cell (WBC) Count 5.5 thou/uL (4.8-10.8)
[2020-05-26 05:09] LABS: Band 1 % (5-11); Hypochromia SLIGHT = 6-15 cells (100X) (0-5/hpf); Lymphocytes 17 % (21-51); MDiff Complete? YES; Monocytes 2 % (0-10); Neutrophil 79 % (42-75); Platelet Morphology Comment Appears Adequate; Reactive Lymphocytes 1 % (0-10)
[2020-05-26 05:15] LABS: ALT (SGPT) 49 U/L (8-55); AST (SGOT) 31 U/L (5-34); Albumin 2.7 g/dL (3.5-5.0); Alkaline Phosphatase 156 U/L (40-110); Anion Gap 13 mmol/L (10-20); BUN (Urea Nitrogen) 11 mg/dL (8.4-25.7); Bilirubin, Total 0.3 mg/dL (0.2-1.2); Calc. Creatinine Clearance 92 mL/min (70-130); Calcium 8.7 mg/dL (7.8-10.44); Carbon Dioxide 25 mmol/L (22-29); Chloride 108 mmol/L (98-107); Globulin 3.4 g/dL (2.4-3.5); Glucose 84 mg/dL (70-105); Magnesium 1.9 mg/dL (1.6-2.6); Potassium 3.5 mmol/L (3.5-5.1); Protein, Total 6.1 g/dL (6.0-8.3); Sodium 142 mmol/L (136-145)
[2020-05-26] MEDS ORDERED: Magnesium 2 GM/50 ML 2 GM in Premix Bag 1 BAG IVPB SCH (06:15)
[2020-05-26] MEDS ORDERED: Potassium Chloride 20 MEQ TAB PO SCH (06:30)
[2020-05-26] MEDS: Folic Acid 1 MG TAB PO SCH (07:51)
[2020-05-26] MEDS: levETIRAcetam 500 MG TAB PO SCH (07:51)
[2020-05-26] MEDS: Thiamine 100 MG TAB PO SCH (07:51)
[2020-05-26] MEDS: Famotidine 20 MG TAB PO SCH (07:51)
[2020-05-26] MEDS: hydrALAZINE 20 MG/ML VIAL SLOW IVP PRN (07:52)
[2020-05-26] MEDS: Multivit, Chewable SF 1 TAB PO SCH (07:52)
[2020-05-26 15:39] VITALS: BP 128/73; TEMP 97.9
[2020-05-26] MEDS: Scopolamine 1.5 mg/72 hour Patch TD SCH (15:40)
== END 2020-05-26 16:30 | DRG 242 ==
LOC: ERS 10:33 → CCU 12:17 → EEVIPCON 12:17 → 2NO 05-23 12:08
PROVIDERS: ADMIT Internal Medicine; ATTEND Internal Medicine
PROC: 0BH17EZ Insertion of Endotracheal Airway into Trachea, Via Natural or Artificial Opening (ICD-10-PCS; 2020-05-12)
PROC: 5A1955Z Respiratory Ventilation, Greater than 96 Consecutive Hours (ICD-10-PCS; 2020-05-12)
PROC: 3E033XZ Introduction of Vasopressor into Peripheral Vein, Percutaneous Approach (ICD-10-PCS; 2020-05-12)
PROC: 0D9670Z Drainage of Stomach with Drainage Device, Via Natural or Artificial Opening (ICD-10-PCS; 2020-05-12)
PROC: 06HY33Z Insertion of Infusion Device into Lower Vein, Percutaneous Approach (ICD-10-PCS; 2020-05-12)
PROC: 30233N1 Transfusion of Nonautologous Red Blood Cells into Peripheral Vein, Percutaneous Approach (ICD-10-PCS; 2020-05-16)
PROC: 0JH606Z Insertion of Pacemaker, Dual Chamber into Chest Subcutaneous Tissue and Fascia, Open Approach (ICD-10-PCS; principal; 2020-05-22)
PROC: 02H63JZ Insertion of Pacemaker Lead into Right Atrium, Percutaneous Approach (ICD-10-PCS; 2020-05-22)
PROC: 02HK3JZ Insertion of Pacemaker Lead into Right Ventricle, Percutaneous Approach (ICD-10-PCS; 2020-05-22)
DX: I49.5 Sick sinus syndrome (principal); J96.01 Acute respiratory failure with hypoxia; J69.0 Pneumonitis due to inhalation of food and vomit; D61.818 Other pancytopenia; E87.0 Hyperosmolality and hypernatremia; E87.2 Acidosis; N17.9 Acute kidney failure, unspecified; G93.40 Encephalopathy, unspecified; N99.820 Postprocedural hemorrhage of a genitourinary system organ or structure following a genitourinary system procedure; I44.2 Atrioventricular block, complete; Z20.822 Contact with and (suspected) exposure to COVID-19; F25.0 Schizoaffective disorder, bipolar type; F17.210 Nicotine dependence, cigarettes, uncomplicated; E87.5 Hyperkalemia; E87.8 Other disorders of electrolyte and fluid balance, not elsewhere classified; E88.09 Other disorders of plasma-protein metabolism, not elsewhere classified; I12.9 Hypertensive chronic kidney disease with stage 1 through stage 4 chronic kidney disease, or unspecified chronic kidney disease; N18.30 Chronic kidney disease, stage 3 unspecified; I08.1 Rheumatic disorders of both mitral and tricuspid valves; E87.6 Hypokalemia; Y84.6 Urinary catheterization as the cause of abnormal reaction of the patient, or of later complication, without mention of misadventure at the time of the procedure; Z87.11 Personal history of peptic ulcer disease; Z79.899 Other long term (current) drug therapy; Z78.1 Physical restraint status
CPT/HCPCS: 0240U; 31500; 33208; 36415; 36416; 36430; 36556; 36600; 51702; 70450; 71045; 71275; 72125; 74177; 80053; 80202; 80306; 80307; 81003; 82533; 82550; 82553; 82607; 82728; 82746; 82805; 83540; 83605; 83690; 83735; 84100; 84145; 84443; 84484; 85007; 85025; 85027; 85046; 85060; 85384; 85610; 85730; 86140; 86850; 86900; 86901; 87040; 87070; 87077; 87149; 87186; 87205; 87449; 87899; 93005; 93010; 93306; 93798; 94002; 94003; 94640; 94760; 95712; 95819; 95957; 96365; 96366; 96368; 96375; 99292; C1785; C1898; J0171; J0360; J0461; J0690; J0692; J1265; J1580; J1630; J1815; J1940; J1953; J2001; J2060; J2250; J2270; J2704; J2916; J3010; J3370; J3411; J3475; J3480; J3490; J7042; J7070; J7620; P9016; Q9967; S0028

== ENCOUNTER 2020-06-05 08:50 | Emergency (ER) | payer MEDICARE, MEDICAID ==
[2020-06-05 11:07] LABS: Bacteria/HPF None Seen HPF (None Seen); Bilirubin Negative (Negative); Blood, Urine 3+ (Negative); Clarity Turbid (Clear); Glucose, Urine (Dipstick) Normal (Negative); Ketone, Urine Negative (Negative); Leukocyte Negative Leu/uL (Negative); Nitrite Negative (Negative); Protein, Urine (Dipstick) 10 mg/dL (Neg-Trace); RBC/HPF Greater than 50 HPF (0-3); Specific Gravity, Urine 1.013 (1.002-1.036); Squamous Epithelial None Seen HPF (0-3); Urobilinogen Normal mg/dL (Less than 2); WBC/HPF 0-3 HPF (0-3)
== END 2020-06-05 12:00 ==
LOC: ERS 08:50
DX: R31.9 Hematuria, unspecified (principal); I10 Essential (primary) hypertension; Z87.891 Personal history of nicotine dependence; Z79.82 Long term (current) use of aspirin; Z79.899 Other long term (current) drug therapy
CPT/HCPCS: 81003; 81015; 99283

== ENCOUNTER 2020-06-06 08:05 | Emergency (ER) | payer MEDICAID, MEDICARE, OTHER ==
[2020-06-06 08:44] LABS: #Basophils 0.1 thou/uL (0.0-0.2); #Eosinphils 0.2 thou/uL (0.0-0.7); #Lymphocytes 1.6 thou/uL (1.20-3.40); #Monocytes 0.6 thou/uL (0.11-0.59); #Neutrophils 4.9 thou/uL (1.40-6.50); %Basophils 0.7 % (0.0-1.0); %Eosinophils 2.5 % (0.0-10.0); %Lymphocytes 21.9 % (21.0-51.0); %Monocytes 8.5 % (0.0-10.0); %Neutrophils 66.3 % (42.0-75.0); Hemoglobin 10.3 g/dL (14.0-18.0); Mean Corpuscular HGB CONC 32.2 g/dL (32.0-36.0); Mean Corpuscular Hemoglobin 29.3 pg (27.0-31.0); Mean Corpuscular Volume 90.7 fL (78.0-98.0); Mean Platelet Volume 8.8 fL (7.4-10.4); Platelet Count 282 thou/uL (130-400); RBC Distribution Width 15.2 % (11.5-14.5); Red Blood Cell (RBC) Count 3.51 mill/uL (4.70-6.10); White Blood Cell (WBC) Count 7.4 thou/uL (4.8-10.8)
[2020-06-06 09:40] LABS: ALT (SGPT) 15 U/L (8-55); AST (SGOT) 21 U/L (5-34); Albumin 3.4 g/dL (3.5-5.0); Alkaline Phosphatase 119 U/L (40-110); Anion Gap 13 mmol/L (10-20); BUN (Urea Nitrogen) 23 mg/dL (8.4-25.7); Bilirubin, Total 0.2 mg/dL (0.2-1.2); Calc. Creatinine Clearance 0 mL/min (70-130); Calcium 9.4 mg/dL (7.8-10.44); Carbon Dioxide 26 mmol/L (22-29); Chloride 110 mmol/L (98-107); Globulin 3.9 g/dL (2.4-3.5); Glucose 75 mg/dL (70-105); Potassium 4.9 mmol/L (3.5-5.1); Protein, Total 7.3 g/dL (6.0-8.3); Sodium 144 mmol/L (136-145)
== END 2020-06-06 09:52 ==
LOC: ERS 08:05 → EEVIPCON 08:05 → ERS 09:52
DX: I95.9 Hypotension, unspecified (principal); R31.9 Hematuria, unspecified; I10 Essential (primary) hypertension; Z87.891 Personal history of nicotine dependence; Z79.82 Long term (current) use of aspirin; Z79.899 Other long term (current) drug therapy
CPT/HCPCS: 71045; 80053; 83605; 83690; 84443; 84484; 85025; 93005

== ENCOUNTER 2023-08-18 17:04 | Emergency (ER) | payer MEDICAID, OTHER ==
[~2023-08-18 17:04] MED LIST: Iopamidol-370 76% 500 ML MDV (1 ML CHARGE) ONE
[2023-08-18] MEDS ORDERED: Ondansetron PF 4 MG/2 ML Vial ONE (17:29)
[2023-08-18 18:56] LABS: Hematocrit 42.4 % (42.0-52.0); Hemoglobin 14.5 g/dL (14.0-18.0); Mean Corpuscular HGB CONC 34.2 g/dL (32.0-36.0); Mean Corpuscular Hemoglobin 28.8 pg (27.0-31.0); Mean Corpuscular Volume 84.1 fL (78.0-98.0); Mean Platelet Volume 11.6 fL (7.4-10.4); Platelet Count 152 10x3/uL (130-400); RBC Distribution Width 15.6 % (11.5-14.5); Red Blood Cell (RBC) Count 5.04 mill/uL (4.70-6.10)
[2023-08-18] MEDS ORDERED: Promethazine HCl 25 MG in Sodium Chloride 0.9% 50 ML IVPB SCH (19:00)
[2023-08-18 19:12] LABS: Troponin I Less than 0.010 ng/mL (< 0.028)
[2023-08-18 19:16] LABS: Burr Cells SLIGHT = 2-5 cells HPF (0-1); Lymphocytes 12 % (21-51); Microcytosis SLIGHT = 6-15 cells HPF (0-5); Monocytes 4 % (0-10); Neutrophil 84 % (42-75); Platelet Adequacy Comment Platelets Normal; Polychromasia SLIGHT = 2-3 cells HPF (0-2); Vacuoles SLIGHT
[2023-08-18] MEDS ORDERED: Famotidine/PF 20 mg/2ml Vial ONE (20:46)
== END 2023-08-18 22:59 | disposition home or self-care (01) ==
LOC: ERS 17:04
DX: R11.2 Nausea with vomiting, unspecified (principal); I10 Essential (primary) hypertension; Z87.891 Personal history of nicotine dependence
CPT/HCPCS: 71045; 74177; 84484; 85025; 93005; 96361; 96374; 96375; J2405; J2550; Q9967; S0028

== ENCOUNTER 2024-01-07 12:56 | Emergency (ER) | payer OTHER ==
[2024-01-07] MEDS ORDERED: cloNIDine 0.1 MG TAB ONE (14:45)
[2024-01-07] MEDS ORDERED: hydrALAZINE 20 MG/ML VIAL ONE (18:46)
[2024-01-07] MEDS ORDERED: Metoclopramide HCl 10 MG (2 mL) VIAL ONE (18:46)
[2024-01-07 19:45] LABS: #Basophils Less than 0.03 10x3/uL (0.0-0.2); #Eosinophils Less than 0.03 10x3/uL (0.0-0.7); %Basophils 0.1 % (0.0-1.0); %Lymphocytes 9.7 % (21.0-51.0); %Monocytes 4.5 % (0.0-10.0); %Neutrophils 85.2 % (42.0-75.0); Hematocrit 42.8 % (42.0-52.0); Hemoglobin 14.4 g/dL (14.0-18.0); Mean Corpuscular HGB CONC 33.6 g/dL (32.0-36.0); Mean Corpuscular Volume 86.1 fL (78.0-98.0); Mean Platelet Volume 11.7 fL (7.4-10.4); Platelet Count 186 10x3/uL (130-400); RBC Distribution Width 14.4 % (11.5-14.5); Red Blood Cell (RBC) Count 4.97 mill/uL (4.70-6.10)
[2024-01-07 19:46] LABS: ALT (SGPT) 13 U/L (8-55); AST (SGOT) 13 U/L (5-34); Albumin 3.9 g/dL (3.5-5.0); Alkaline Phosphatase 121 U/L (40-110); Anion Gap 19 mmol/L (10-20); BUN (Urea Nitrogen) 15 mg/dL (8.4-25.7); Bilirubin, Total 0.6 mg/dL (0.2-1.2); Calc. Creatinine Clearance 0 mL/min (70-130); Carbon Dioxide 20 mmol/L (22-29); Chloride 111 mmol/L (98-107); Estimated GFR 86; Globulin 3.4 g/dL (2.4-3.5); Glucose 140 mg/dL (70-105); Potassium 3.7 mmol/L (3.5-5.1); Protein, Total 7.3 g/dL (6.0-8.3); Sodium 146 mmol/L (136-145)
== END 2024-01-07 21:15 | disposition home or self-care (01) ==
LOC: ERS 12:56
DX: K52.9 Noninfective gastroenteritis and colitis, unspecified (principal); I10 Essential (primary) hypertension; F17.210 Nicotine dependence, cigarettes, uncomplicated
CPT/HCPCS: 70450; 80053; 83605; 85025; 96361; 96374; 96375; 99284; J0360; J2765; 36415

== ENCOUNTER 2024-01-08 15:06 | Observation (INO) | payer OTHER ==
[2024-01-08] MEDS ORDERED: Ondansetron PF 4 MG/2 ML Vial ONE (16:11)
[2024-01-08 16:17] LABS: #Basophils Less than 0.03 10x3/uL (0.0-0.2); #Eosinophils Less than 0.03 10x3/uL (0.0-0.7); %Basophils 0.1 % (0.0-1.0); %Lymphocytes 8.2 % (21.0-51.0); %Monocytes 7.8 % (0.0-10.0); %Neutrophils 83.7 % (42.0-75.0); Hematocrit 40.9 % (42.0-52.0); Hemoglobin 13.9 g/dL (14.0-18.0); Mean Corpuscular Hemoglobin 28.7 pg (27.0-31.0); Mean Corpuscular Volume 84.5 fL (78.0-98.0); Mean Platelet Volume 11.1 fL (7.4-10.4); Platelet Count 181 10x3/uL (130-400); RBC Distribution Width 14.6 % (11.5-14.5); Red Blood Cell (RBC) Count 4.84 mill/uL (4.70-6.10)
[2024-01-08 16:50] LABS: Acetaminophen Less than 10 mcg/mL (Less than 10); Alcohol Less than 10.0 mg/dL (Less than 10); Salicylate Less than 8.0 mg/dL (Less than 8.0)
[2024-01-08 16:53] LABS: ALT (SGPT) 10 U/L (8-55); AST (SGOT) 13 U/L (5-34); Albumin 3.9 g/dL (3.5-5.0); Alkaline Phosphatase 113 U/L (40-110); Anion Gap 15 mmol/L (10-20); BUN (Urea Nitrogen) 23 mg/dL (8.4-25.7); Bilirubin, Total 0.5 mg/dL (0.2-1.2); CK (CPK) 160 U/L (30-200); Calc. Creatinine Clearance 0 mL/min (70-130); Carbon Dioxide 28 mmol/L (22-29); Chloride 112 mmol/L (98-107); Estimated GFR 63; Globulin 3.3 g/dL (2.4-3.5); Glucose 121 mg/dL (70-105); Lipase 18 U/L (8-78); Potassium 3.5 mmol/L (3.5-5.1); Protein, Total 7.2 g/dL (6.0-8.3); Sodium 151 mmol/L (136-145)
[2024-01-08] MEDS ORDERED: Labetalol HCl 100 MG/20 ML VIAL ONE (17:31)
[2024-01-08] MEDS ORDERED: Prochlorperazine 10 MG/2 ML VIAL ONE (18:07)
[2024-01-08 18:51] LABS: Amphetamine Not Detected (NotDetected); Barbiturates Screen Not Detected (NotDetected); Benzodiazepine Screen Not Detected (NotDetected); Cocaine Metabolite Screen Not Detected (NotDetected); Methadone Not Detected (NotDetected); Methamphetamine Not Detected (NotDetected); Opiate Screen Not Detected (NotDetected); Oxycodone Screen Not Detected (NotDetected); Phencyclidine (PCP) Not Detected (NotDetected); THC/Cannabinoid Screen Not Detected (NotDetected); Tricyclic Screen Not Detected (NotDetected)
[2024-01-08] MEDS ORDERED: Diazepam 10 MG/2 ML SYRINGE ONE (19:12)
[2024-01-08] MEDS ORDERED: Ondansetron PF 4 MG/2 ML Vial IVP PRN (19:20)
[2024-01-08 20:55] VITALS: BMI 24.7
[2024-01-08] MEDS: Dextrose 5 %-0.45 % NaCl 1,000 ML IV SCH (20:55)
[2024-01-08] MEDS: Famotidine/PF 20 mg/2ml Vial SLOW IVP SCH (20:56)
[2024-01-08] MEDS: Acetaminophen 325 MG TAB PO PRN (20:56)
[2024-01-08] MEDS: levETIRAcetam 500 MG TAB PO SCH (20:57)
[2024-01-08] MEDS: Heparin 5,000 UNITS/ML VIAL SC SCH (20:57)
[2024-01-08] MEDS: risperiDONE 3 MG TAB PO SCH (22:06)
[2024-01-09] MEDS: hydrALAZINE 20 MG/ML VIAL SLOW IVP SCH (02:05)
[2024-01-09 06:24] LABS: #Basophils Less than 0.03 10x3/uL (0.0-0.2); #Eosinophils Less than 0.03 10x3/uL (0.0-0.7); %Basophils 0.2 % (0.0-1.0); %Lymphocytes 12.6 % (21.0-51.0); %Monocytes 6.5 % (0.0-10.0); %Neutrophils 80.5 % (42.0-75.0); Hematocrit 39.5 % (42.0-52.0); Hemoglobin 13.4 g/dL (14.0-18.0); Mean Corpuscular HGB CONC 33.9 g/dL (32.0-36.0); Mean Corpuscular Hemoglobin 28.7 pg (27.0-31.0); Mean Corpuscular Volume 84.6 fL (78.0-98.0); Mean Platelet Volume 11.7 fL (7.4-10.4); Platelet Count 163 10x3/uL (130-400); RBC Distribution Width 14.7 % (11.5-14.5); Red Blood Cell (RBC) Count 4.67 mill/uL (4.70-6.10)
[2024-01-09 06:47] LABS: Anion Gap 16 mmol/L (10-20); BUN (Urea Nitrogen) 19 mg/dL (8.4-25.7); Calc. Creatinine Clearance 76 mL/min (70-130); Calcium 9.3 mg/dL (7.8-10.44); Carbon Dioxide 25 mmol/L (22-29); Chloride 112 mmol/L (98-107); Estimated GFR 73; Glucose 94 mg/dL (70-105); Potassium 3.4 mmol/L (3.5-5.1); Sodium 150 mmol/L (136-145)
[2024-01-09 08:02] VITALS: BP 176/83; TEMP 99
[2024-01-09] MEDS: Dextrose 5% in Water 1,000 ML IV SCH (09:05)
[2024-01-09] MEDS: Thiamine 100 MG TAB PO SCH (09:06)
[2024-01-09] MEDS: Sertraline 25 MG TAB PO SCH (09:06)
[2024-01-09] MEDS: Potassium Chloride 20 MEQ TAB PO SCH (09:06)
[2024-01-09] MEDS: Folic Acid 1 MG TAB PO SCH (09:06)
[2024-01-09] MEDS: Aspirin Chewable 81 MG TAB PO SCH (09:06)
[2024-01-09 11:51] VITALS: BMI 24.7
[2024-01-09 14:15] LABS: Anion Gap 16 mmol/L (10-20); BUN (Urea Nitrogen) 19 mg/dL (8.4-25.7); Calc. Creatinine Clearance 76 mL/min (70-130); Calcium 9.3 mg/dL (7.8-10.44); Carbon Dioxide 26 mmol/L (22-29); Chloride 111 mmol/L (98-107); Estimated GFR 74; Glucose 96 mg/dL (70-105); Potassium 3.3 mmol/L (3.5-5.1); Sodium 150 mmol/L (136-145)
[2024-01-09] MEDS: Amlodipine 5 MG TAB PO SCH (17:02)
== END 2024-01-09 20:15 | disposition left against medical advice (07) ==
LOC: ERS 15:06 → INTOOBSV 18:48 → T4-A 18:48
PROVIDERS: ADMIT Internal Medicine; ATTEND Student in an Organized Health Care Education/Training Program
DX: E87.0 Hyperosmolality and hypernatremia (principal); E87.6 Hypokalemia; E86.0 Dehydration; I10 Essential (primary) hypertension; I16.0 Hypertensive urgency; F20.9 Schizophrenia, unspecified; G40.909 Epilepsy, unspecified, not intractable, without status epilepticus; N28.89 Other specified disorders of kidney and ureter; N17.9 Acute kidney failure, unspecified; Z87.891 Personal history of nicotine dependence; Z79.82 Long term (current) use of aspirin; Z79.01 Long term (current) use of anticoagulants; Z79.899 Other long term (current) drug therapy
CPT/HCPCS: 74177; 80048 ×2; 80053; 80306; 80307; 82550; 83690; 85025 ×2; 93005; 96361; 96374; 96375 ×2; 99285; G0378 ×3; J0360; J0780; J2405; J3360; Q9967; 36415; J1644; J3490; J7042

== ENCOUNTER 2024-01-31 12:43 | Emergency (ER) | payer OTHER | END 2024-01-31 14:07 | LOC: ERS 12:43 | DX: R11.0 Nausea (principal); R10.9 Unspecified abdominal pain; I10 Essential (primary) hypertension; F17.210 Nicotine dependence, cigarettes, uncomplicated; Z53.21 Procedure and treatment not carried out due to patient leaving prior to being seen by health care provider | CPT/HCPCS: 99283 ==

== ENCOUNTER 2025-01-18 16:49 | Observation (INO) | payer OTHER ==
[2025-01-18 17:20] LABS: #Basophils 0.03 10x3/uL (0.0-0.2); #Eosinophils Less than 0.03 10x3/uL (0.0-0.7); #Monocytes 0.64 10x3/uL (0.11-0.59); #Neutrophils 9.10 10x3/uL (1.40-6.50); %Basophils 0.3 % (0.0-1.0); %Eosinophils 0.1 % (0.0-10.0); %Lymphocytes 15.9 % (21.0-51.0); %Monocytes 5.5 % (0.0-10.0); %Neutrophils 77.5 % (42.0-75.0); Hematocrit 50.8 % (42.0-52.0); Hemoglobin 17.1 g/dL (14.0-18.0); Mean Corpuscular Hemoglobin 28.2 pg (27.0-31.0); Mean Corpuscular Volume 83.8 fL (78.0-98.0); Platelet Count 237 10x3/uL (130-400); Red Blood Cell (RBC) Count 6.06 mill/uL (4.70-6.10); White Blood Cell (WBC) Count 11.73 10x3/uL (4.8-10.8)
[2025-01-18 17:34] LABS: Magnesium 3.1 mg/dL (1.6-2.6)
[2025-01-18 17:35] LABS: ALT (SGPT) 16 U/L (Less than 45); AST (SGOT) 28 U/L (11-34); Acetaminophen Less than 10 mcg/mL (Less than 10); Albumin 4.1 g/dL (3.1-4.5); Alkaline Phosphatase 117 U/L (40-110); Anion Gap 22 mmol/L (10-20); BUN (Urea Nitrogen) 80 mg/dL (8.4-25.7); Bilirubin, Total 1.0 mg/dL (0.3-1.2); Calc. Creatinine Clearance 0 mL/min (70-130); Calcium 10.4 mg/dL (7.8-10.44); Carbon Dioxide 26 mmol/L (22-29); Chloride 97 mmol/L (98-107); Globulin 3.5 g/dL (2.4-3.5); Glucose 107 mg/dL (70-105); Potassium 4.5 mmol/L (3.5-5.1); Salicylate Less than 8.0 mg/dL (Less than 8.0); Sodium 140 mmol/L (136-145)
[2025-01-18] MEDS ORDERED: levETIRAcetam 500 MG (5 mL) VIAL ONE (21:27)
== END 2025-01-19 02:05 | disposition left against medical advice (07) ==
LOC: ERS 16:49 → OBS 21:03 → ERHOLD 22:05
PROVIDERS: ADMIT Internal Medicine; ATTEND Internal Medicine
DX: R55 Syncope and collapse (principal); R10.9 Unspecified abdominal pain; Z00.00 Encounter for general adult medical examination without abnormal findings; I10 Essential (primary) hypertension; F17.210 Nicotine dependence, cigarettes, uncomplicated
CPT/HCPCS: 71045; 80053; 80307; 82550; 83735; 84484; 85025; 93005; 96361; 96374; 99284; J1953; J3411; 99283

== ENCOUNTER → 2025-01-20 | Emergency (ER) | payer OTHER | LOC: EEVIPCON 14:18 → ERS 14:18 | DX: Z00.00 Encounter for general adult medical examination without abnormal findings (principal); I10 Essential (primary) hypertension; F17.210 Nicotine dependence, cigarettes, uncomplicated | CPT/HCPCS: 99283 ==